=== PATIENT | male | born 1980 | race American Indian/Alaskan Native ===

== ENCOUNTER 2017-06-02 08:45 | Emergency (ER) | payer SELFPAY ==
[2017-06-02 08:52] VITALS: BP 139/95
--- NOTE | 2017-06-02 09:30 | Emergency Department Report ---
ED Male HPI - General Chief complaint: Urogenital-Male Stated complaint: STD CHECK Time Seen by Provider: 06/02/17 09:11 Source: patient Mode of arrival: Ambulatory Limitations: No Limitations - History of Present Illness Initial comments: This is a 36-year-old male nontoxic, well nourished in appearance, no acute signs of distress presents to the ED with c/o of possible STD exposure. Patient stated he had unprotected sex last week and his partner was diagnosed with Trichomonas couple days ago. Patient denies any penile discharge, urinary frequency, dysuria or hematuria. Patient denies any penile ulcers or lesions. Patient denies any testicular swelling, fever, chills, nausea, vomiting, chest pain or shortness of breath. Patient denies any allergies or significant past medical history. Radiation: none Severity scale (0 -10): 0 Improves with: none Worsens with: none denies other symptoms. denies: discharge, swelling, mass, rash, urinary retention, blood in urine, dysuria, fever, nausea/vomiting, incontinence - Related Data Allergies Allergy/AdvReac Type Severity Reaction Status Date / Time No Known Allergies Allergy Unverified 06/02/17 08:49 ED Review of Systems ROS: Stated complaint: STD CHECK Other details as noted in HPI Constitutional: denies: chills, fever Eyes: denies: eye pain, eye discharge, vision change ENT: denies: ear pain, throat pain Respiratory: denies: cough, shortness of breath, wheezing Cardiovascular: denies: chest pain, palpitations Endocrine: no symptoms reported Gastrointestinal: denies: abdominal pain, nausea, diarrhea Genitourinary: denies: urgency, dysuria Musculoskeletal: denies: back pain, joint swelling, arthralgia Skin: denies: rash, lesions Neurological: denies: headache, weakness, paresthesias Psychiatric: denies: anxiety, depression Hematological/Lymphatic: denies: easy bleeding, easy bruising ED Past Medical Hx - Past Medical History Previous Medical History?: No - Surgical History Past Surgical History?: No - Social History Smoking Status: Current Every Day Smoker Substance Use Type: Alcohol ED Physical Exam - General Limitations: No Limitations General appearance: alert, in no apparent distress - Head Head exam: Present: atraumatic, normocephalic - Eye Eye exam: Present: normal appearance - ENT ENT exam: Present: mucous membranes moist - Neck Neck exam: Present: normal inspection - Respiratory Respiratory exam: Present: normal lung sounds bilaterally. Absent: respiratory distress - Cardiovascular Cardiovascular Exam: Present: regular rate, normal rhythm. Absent: systolic murmur, diastolic murmur, rubs, gallop - GI/Abdominal GI/Abdominal exam: Present: soft, normal bowel sounds - Rectal Rectal exam: Present: deferred - Extremities Exam Extremities exam: Present: normal inspection - Back Exam Back exam: Present: normal inspection - Neurological Exam Neurological exam: Present: alert, oriented X3 - Psychiatric Psychiatric exam: Present: normal affect, normal mood - Skin Skin exam: Present: warm, dry, intact, normal color. Absent: rash ED Course Vital Signs 06/02/17 08:49 Temperature 97.8 F Pulse Rate 104 H Respiratory 20 Rate Blood Pressure 139/95 O2 Sat by Pulse 97 Oximetry - Reevaluation(s) Reevaluation #1: 06/02/17 09:28 Patient is speaking in full sentences with no signs of distress noted. ED Medical Decision Making - Medical Decision Making this is a 36-year-old male presents with possible STD exposure. Patient is stable and was examined by me. UA obtained and gonorrhea chlamydia pending. Patient was notified to return in 2 days for results of GC. He wants to be treated empirically so patient received Rocephin and azithromycin. Patient was also instructed to Follow-up with a primary care doctor in 3-5 days or if symptoms worsen and continue return to emergency room as soon as possible. At time of discharge, the patient does not seem toxic or ill in appearance. No acute signs of distress noted. Patient agrees to discharge treatment plan of care. No further questions noted by the patient. Critical care attestation.: If time is entered above; I have spent that time in minutes in the direct care of this critically ill patient, excluding procedure time. ED Disposition Clinical Impression: Possible exposure to STD Disposition: DC-01 TO HOME OR SELFCARE Is pt being admited?: No Does the pt Need Aspirin: No Condition: Stable Instructions: Safe Sex (ED) Additional Instructions: Follow-up with a primary care doctor in 3-5 days or if symptoms worsen and continue return to emergency room as soon as possible. Return in 3 days to obtain results of gonorrhea and chlamydia Referrals: JOE UGALDE MD [Primary Care Provider] - 3-5 Days LOKESH BOUCHER MD [Staff Physician] - 3-5 Days [facility] [Outside] - 3-5 Days Forms: Work/School Release Form(ED)
[2017-06-02] MEDS ORDERED: XYLOCAINE 1% MPF 5 mL INFILTRATI ONE (09:43)
[2017-06-02] MEDS ORDERED: ROCEPHIN IM ONE (09:43)
[2017-06-02] MEDS ORDERED: ZITHROMAX PO ONE (09:43)
[2017-06-02 09:52] LABS: Bilirubin,Urine NEG (Negative); Blood,Urine NEG (Negative); Color,Urine Yellow (Yellow); Protein,Urine <15 mg/dL mg/dL (Negative); Urobilinogen,Urine < 2.0 mg/dL (<2.0)
== END 2017-06-02 10:51 | disposition home or self-care (01) ==
LOC: ED 08:45
DX: Z20.2 Contact with and (suspected) exposure to infections with a predominantly sexual mode of transmission (principal); F17.200 Nicotine dependence, unspecified, uncomplicated
CPT/HCPCS: 81001; 87591; 96372; 99283; J0696

== ENCOUNTER 2017-12-23 13:50 | Emergency (ER) | payer SELFPAY ==
[2017-12-23] MEDS ORDERED: NORCO 5/325 PO ONE (17:00)
[2017-12-23] MEDS ORDERED: BOOSTRIX IM ONE (17:00)
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
[2017-12-23 19:26] VITALS: BP 124/86
== END 2017-12-23 19:26 | disposition home or self-care (01) ==
LOC: ED 13:50
DX: S02.2XXA Fracture of nasal bones, initial encounter for closed fracture (principal); S02.5XXA Fracture of tooth (traumatic), initial encounter for closed fracture; F17.200 Nicotine dependence, unspecified, uncomplicated; Y35.891A Legal intervention involving other specified means, law enforcement official injured, initial encounter; Y93.89 Activity, other specified; Y92.89 Other specified places as the place of occurrence of the external cause; Y99.8 Other external cause status
CPT/HCPCS: 70450; 70486; 90471; 90715; 99283

== ENCOUNTER 2018-10-05 21:24 | Emergency (ER) | payer OTHER ==
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
[2018-10-05] MEDS ORDERED: IBUPROFEN PO ONE (21:38)
[2018-10-05 21:52] VITALS: BP 105/76
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
[2018-10-06] MEDS ORDERED: IBUPROFEN ONE (00:11)
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
== END 2018-10-06 01:45 | disposition home or self-care (01) ==
LOC: ED 21:24
DX: S16.1XXA Strain of muscle, fascia and tendon at neck level, initial encounter (principal); S09.90XA Unspecified injury of head, initial encounter; M54.9 Dorsalgia, unspecified; F17.200 Nicotine dependence, unspecified, uncomplicated; V49.59XA Passenger injured in collision with other motor vehicles in traffic accident, initial encounter; Y93.89 Activity, other specified; Y92.89 Other specified places as the place of occurrence of the external cause; Y99.8 Other external cause status
CPT/HCPCS: 70450; 72125

== ENCOUNTER 2019-10-27 09:10 | Emergency (ER) | payer SELFPAY ==
[2019-10-27 09:26] VITALS: BP 141/101
--- NOTE | 2019-10-27 10:14 | Emergency Department Report ---
Chief Complaint: Back Pain/Injury Stated Complaint: BACK PAIN - HPI History of Present Illness: 39-year-old -Emirati male presents to the emergency room stating that he hurt his back this morning while moving a washing machine and dryer. Patient states that it is more on his left side. Patient reports is worse with twisting and movement. Patient denies any urinary or bowel incontinent. Patient is taken nothing for his pain. Patient denies any direct trauma to his back. Patient denies any past medical history takes no medications on a daily basis and has no known drug allergies. - Exam Vital Signs: Vital Signs 10/27/19 09:24 Temperature 98.3 F Pulse Rate 95 H Respiratory 20 Rate Blood Pressure 141/101 O2 Sat by Pulse 99 Oximetry Physical Exam: Alert and oriented x3 no acute distress Back full range of motion no vertebral tenderness left side muscle tenderness Ambulatory without difficulties. MSE screening note: Focused history and physical exam performed. Due to findings the following was ordered: 39-year-old -Emirati male presents to the emergency room stating that he hurt his back this morning while moving a washing machine and dryer. Patient states that it is more on his left side. Patient reports is worse with twisting and movement. Patient denies any urinary or bowel incontinent. Patient is taken nothing for his pain. Patient denies any direct trauma to his back. Patient denies any past medical history takes no medications on a daily basis and has no known drug allergies. You can take xciy-qcz-umzpsry ibuprofen and increase your water intake and follow-up with your primary care provider. ED Disposition for [facility] [place] Disposition: MED SCREENING EXAM-LEFT Is pt being admited?: No Does the pt Need Aspirin: No Condition: Stable Instructions: Low Back Strain (ED) Additional Instructions: You can take fywv-pfd-afywiwr ibuprofen and increase your water intake and follow-up with your primary care provider. Referrals: PRIMARY CARE, [Primary Care Provider] - 3-5 Days [facility] [Outside] - 3-5 Days [facility] [Provider Group] - 3-5 Days
== END 2019-10-27 10:44 | disposition left against medical advice (07) ==
LOC: ED 09:10
DX: M54.9 Dorsalgia, unspecified (principal); Z53.21 Procedure and treatment not carried out due to patient leaving prior to being seen by health care provider

== ENCOUNTER 2020-10-16 08:49 | Inpatient (IN) | payer OTHER, SELFPAY ==
[2020-10-16] MEDS ORDERED: MORPHINE 2 MG/1 ML INJ IV ONE (09:07)
[2020-10-16] MEDS ORDERED: ONDANSETRON 4 MG/2 ML INJ IV ONE (09:07)
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
[2020-10-16] MEDS ORDERED: HALOPERIDOL LACTATE 5 MG/1 ML INJ IM ONE (09:47)
[2020-10-16 10:05] LABS: Hematocrit 47.6 % (35.5-45.6); Hemoglobin 15.9 gm/dl (11.8-15.2); Mean Corpuscular HGB Conc 33 % (32-34); Mean Corpuscular Volume 93 fl (84-94); Platelet Count 301 K/mm3 (140-440); Red Blood Count 5.12 M/mm3 (3.65-5.03); Red Cell Distribution Width 16.3 % (13.2-15.2)
[2020-10-16 10:24] LABS: Alanine Aminotransferase 21 units/L (7-56); Albumin 4.4 g/dL (3.9-5); BUN/Creatinine Ratio 10; Blood Urea Nitrogen 12 mg/dL (9-20); Calcium 9.6 mg/dL (8.4-10.2); Hemolysis Index 37
[2020-10-16 10:49] LABS: Bilirubin,Direct < 0.2 mg/dL (0-0.2)
[2020-10-16] MEDS ORDERED: PIPERACIL/TAZOBACTA 4.5/NS 100 4.5 GM/100 ML VIAL IV ONE (10:54)
--- NOTE | 2020-10-16 10:59 | XRay Report ---
XR abd series w cxr 1V INDICATION / CLINICAL INFORMATION: abd pain. COMPARISON: None available. FINDINGS: SUPPORT DEVICES: None. HEART / MEDIASTINUM: No significant abnormality. LUNGS / PLEURA: Lungs are clear. Costophrenic sulci are sharp. No pneumothorax. ABDOMEN: Free air noted underlying the right and left hemidiaphragms. No other abnormal findings with in the abdomen. ADDITIONAL FINDINGS: No significant additional findings. IMPRESSION: Pneumoperitoneum. CRITICAL RESULT Time of Communication (RAILROAD AUDITOR/CDT): 9:54 AM Licensed Practitioner Receiving Report: Dr. Newsome Read-Back Performed: Yes. Signer Name: Burt Shah MD Signed: 10/16/2020 10:54 AM Workstation Name: [email or web address]
[2020-10-16] MEDS ORDERED: SODIUM CHLORIDE 0.9% 1000 ML 1,000 ML IV ONE ×2 (11:21→14:51)
--- NOTE | 2020-10-16 11:33 | Cat Scan Report ---
CT ABDOMEN AND PELVIS WITH IV CONTRAST INDICATION: abd pain omni 300 100ml . Known pneumoperitoneum COMPARISON: None available. TECHNIQUE: Axial CT images were obtained through the abdomen and pelvis after 100 mL IV contrast. All CT scans a t this location are performed using CT dose reduction for ALARA by means of automated exposure contro l. FINDINGS -- Abdomen and pelvis: Severe and extensive free intraperitoneal air and fluid identified throughout the abdomen especially the upper abdomen. There is patchy bibasilar consolidation within both lower lung s, right worse than left consistent with mild pneumonitis/atelectasis. There is free gas adjacent to the distal thoracic esophagus just above the level of the esophageal hiatus. There are multiple dilated loops of small bowel within the left mid and lower abdomen. The duodenum a ppears dilated. A transition is difficult to discern but appears to be near the midline mid abdomen. The liver, spleen, pancreas adrenal glands and kidneys are grossly unremarkable within the limits of the exam given significant amount of respiratory motion artifact. The gallbladder demonstrates modera te pericholecystic fluid however this could be secondary to significant free intra-abdominal fluid. T he proximal duodenum is fluid distended. Multiple cysts are present within the kidneys. Abdominal aor ta is normal in size. The appendix is poorly identified on this exam. The urinary bladder is fluid di stended. Moderate free pelvic fluid is noted. A+ free gas is present within the lower pelvis. Review of bone windows demonstrates mild thoracolumbar degenerative change. IMPRESSION: 1. Severe and extensive pneumoperitoneum with free fluid throughout much of the abdomen but especiall y the right upper abdomen. Overall the findings are most consistent with a perforated viscus within t he upper GI tract however the exact location is somewhat uncertain especially given the degree of mot ion artifact. Primary considerations of areas of possible perforation include the proximal duodenum ( perforated ulcer) versus the distal thoracic esophagus. Upper endoscopy may be useful for further nereyda luation. 2. Multiple dilated loops of small bowel primarily involving the left mid abdomen with gradual transi tion somewhere near the mid abdomen. It is unclear if this dilatation is primarily secondary to acute peritonitis from perforated viscus versus newly developing small bowel obstruction. Signer Name: Brenton Chaparro MD Signed: 10/16/2020 11:29 AM Workstation Name: [employer]
[2020-10-16] MEDS ORDERED: methylPREDNISolone Sod Succinate 125 MG/2 ML INJ ONE (13:21)
[2020-10-16] MEDS ORDERED: FAMOTIDINE 20 MG/2 ML INJ IV ONE (13:21)
[2020-10-16] MEDS ORDERED: diphenhydrAMINE 50 MG/ML VIAL ONE (13:22)
[2020-10-16] MEDS ORDERED: EPINEPHrine/PF 1 MG/1 ML INJ ONE (13:29)
--- NOTE | 2020-10-16 13:58 | Fluoroscopy Report ---
BARIUM SWALLOW HISTORY: Severe abdominal pain, free air on recent CT, evaluate for esophageal perforation FINDINGS: Multiple attempts were made to get the patient to ingest Gastrografin to evaluate for an es ophageal leak/perforation. The patient was unable to ingest the oral contrast agent secondary to ramona re pain. These findings were discussed with Dr. Newsome in the emergency department. IMPRESSION: Unsuccessful exam due to patient condition. See above. Fluoroscopy time: 0.3 minutes. Fluoroscopic images:1 Signer Name: Williams Martinez Jr, MD Signed: 10/16/2020 1:54 PM Workstation Name: [id number]
[2020-10-16 15:12] LABS: Total Cells Counted 100
[2020-10-16 15:13] LABS: Platelet Estimate Consistent w Auto; RBC Morphology Normal
--- NOTE | 2020-10-16 17:24 | Consultation ---
History of Present Illness Consult date: 10/16/20 Reason for consult: abdominal pain - History of present illness History of present illness: 40 yo male presents to the ED with 3 hour h/o diffuse abdominal pain, nausea and vomiting after eating yogurt and milk. Denies hematemesis, melena, significant alcohol intake or h/o PUD. No OTC NSAID use. Medications and Allergies Allergies Allergy/AdvReac Type Severity Reaction Status Date / Time No Known Allergies Allergy Verified 10/27/19 09:22 Home Medications Medication Instructions Recorded Confirmed Last Taken Type HYDROcodone/APAP 5-325 [Stow 1 each PO Q6HR PRN #12 tablet 12/23/17 Unknown Rx 5/325] Sulfamethoxazole/Trimethoprim 1 each PO BID #14 tablet 12/23/17 Unknown Rx [Bactrim DS TAB] Ketorolac [Toradol] 10 mg PO Q6H PRN #14 tablet 01/02/18 Unknown Rx methOCARBAMOL [Robaxin TAB] 500 mg PO Q6H PRN #20 tablet 01/02/18 Unknown Rx Baclofen [Lioresal] 10 mg PO TID #15 tab 10/06/18 Unknown Rx Ibuprofen [Motrin 600 MG tab] 600 mg PO Q8H PRN #30 tablet 10/06/18 Unknown Rx Active Meds: Active Medications Sodium Chloride (Nacl 0.9% 1000 Ml) 1,000 mls @ 125 mls/hr IV ONCE ONE Stop: 10/16/20 22:50 Review of Systems All systems: negative (none) Exam Vital Signs Pulse Ox 64 L 10/16/20 09:01 - General physical appearance Positive: well developed, well nourished, no distress - Eyes Positive: PERRL, normal occular movement - ENT Positive: normal pinna, normal nares, normal mucosa, no hearing loss, no congestion - Neck Positive: no masses, no bruits, trachea midline, no venous distension - Respiratory Positive: normal expansion, normal respiratory effort, clear to auscultation - Cardiovascular Rhythm: regular Heart Sounds: Present: S1 & S2. Absent: rub, click - Extremities Extremities: no ischemia, pulses symmetrical, No edema - Breasts Breasts: normal, no mass, no skin changes - Abdomen Abdomen: Present: other (Flat with diffuse tenderness, rebound and guarding. BS hypoactive. No hernias.) Hernia: none - Genitourinary Male Genitourinary: normal Female Genitourinary: normal - Integumentary no rash, no growths, no abnormal pigmentation - Neurologic Neurologic: alert and oriented to time, place and person, motor strength and sensation are grossly intact - Musculoskeletal normal gait, normal posture - Psychiatric Psychiatric: appropriate mood/affect, intact judgment & insight Results - Labs 10/16/20 09:44 10/16/20 09:44 Abnormal lab results 10/16/20 10/16/20 Range/Units 09:44 09:44 RBC 5.12 H (3.65-5.03) M/mm3 Hgb 15.9 H (11.8-15.2) gm/dl Hct 47.6 H (35.5-45.6) % RDW 16.3 H (13.2-15.2) % Seg Neuts % (Manual) 75.0 H (40.0-70.0) % Lymphocytes % (Manual) 9.0 L (13.4-35.0) % Lymphocytes # (Manual) 0.6 L (1.2-5.4) K/mm3 Glucose 133 H (75-100) mg/dL Lipase 99 H (13-60) units/L Diabetes panel 10/16/20 Range/Units 09:44 Sodium 137 (137-145) mmol/L Potassium 3.9 (3.6-5.0) mmol/L Chloride 98.6 (98-107) mmol/L Carbon Dioxide 23 (22-30) mmol/L BUN 12 (9-20) mg/dL Creatinine 1.2 (0.8-1.3) mg/dL Glucose 133 H (75-100) mg/dL Calcium 9.6 (8.4-10.2) mg/dL AST 40 (5-40) units/L ALT 21 (7-56) units/L Alkaline Phosphatase 56 (35-129) units/L Total Protein 6.8 (6.3-8.2) g/dL Albumin 4.4 (3.9-5) g/dL Calcium panel 10/16/20 Range/Units 09:44 Calcium 9.6 (8.4-10.2) mg/dL Albumin 4.4 (3.9-5) g/dL Pituitary panel 10/16/20 Range/Units 09:44 Sodium 137 (137-145) mmol/L Potassium 3.9 (3.6-5.0) mmol/L Chloride 98.6 (98-107) mmol/L Carbon Dioxide 23 (22-30) mmol/L BUN 12 (9-20) mg/dL Creatinine 1.2 (0.8-1.3) mg/dL Glucose 133 H (75-100) mg/dL Calcium 9.6 (8.4-10.2) mg/dL Adrenal panel 10/16/20 Range/Units 09:44 Sodium 137 (137-145) mmol/L Potassium 3.9 (3.6-5.0) mmol/L Chloride 98.6 (98-107) mmol/L Carbon Dioxide 23 (22-30) mmol/L BUN 12 (9-20) mg/dL Creatinine 1.2 (0.8-1.3) mg/dL Glucose 133 H (75-100) mg/dL Calcium 9.6 (8.4-10.2) mg/dL Total Bilirubin 0.60 (0.1-1.2) mg/dL AST 40 (5-40) units/L ALT 21 (7-56) units/L Alkaline Phosphatase 56 (35-129) units/L Total Protein 6.8 (6.3-8.2) g/dL Albumin 4.4 (3.9-5) g/dL - Imaging Chest x-ray: image reviewed Abdominal x-ray: image reviewed CT scan - abdomen: report reviewed CT scan - pelvis: report reviewed Assessment and Plan - Patient Problems (1) Perforated abdominal viscus Current Visit: Yes Status: Acute Plan to address problem: 1) IV Zosyn 2) IV Protonix 3) To OR for exploratory laparotomy and indicated surgery.
[2020-10-16] MEDS ORDERED: PANTOPRAZOLE 40 MG INJ IV ONE (17:40)
--- NOTE | 2020-10-16 17:44 | XRay Report ---
CHEST 1 VIEW 10/16/2020 4:18 PM INDICATION / CLINICAL INFORMATION: r/o esophageal perforation. COMPARISON: October 16 at 10:28 AM FINDINGS: SUPPORT DEVICES: None. HEART / MEDIASTINUM: No significant abnormality. LUNGS / PLEURA: There is increased opacity within the right lung base, likely representing compressiv e atelectasis No pneumothorax. ADDITIONAL FINDINGS: Redemonstrated subdiaphragmatic air. Contrast material is noted within the stoma ch extending into the duodenum. IMPRESSION: 1. Redemonstrated pneumoperitoneum. Increased opacity within the right lung base, likely representing compressive atelectasis. Signer Name: Ronald Romo DO Signed: 10/16/2020 5:40 PM Workstation Name: [id number]
[2020-10-16] MEDS ORDERED: LIDOCAINE MPF (2%) 20 MG/1 ML VIAL 5 ML ONE (18:08)
[2020-10-16] MEDS ORDERED: propofoL 200 MG/20 ML VIAL IV ONE (18:08)
[2020-10-16] MEDS ORDERED: ROCURONIUM 50 MG/5 ML INJ IV ONE (18:08)
[2020-10-16] MEDS ORDERED: ONDANSETRON 4 MG/2 ML INJ ONE (18:08)
[2020-10-16] MEDS ORDERED: HYDROmorphone 1 MG/1 ML INJ ONE (18:08)
[2020-10-16] MEDS ORDERED: SUCCINYLCHOLINE CHLORIDE 200 MG/10 ML INJ MDV ONE (18:11)
--- NOTE | 2020-10-16 18:15 | Anesthesia Day of Surgery ---
Anesthesia Day of Surgery - Day of Surgery Patient Examined: Yes Patient H&P Reviewed: Yes Patient is NPO: No (Had oral contrast)
--- NOTE | 2020-10-16 18:17 | Anesthesia Consultation ---
Anesthesia Consult and Med Hx Date of service: 10/16/20 - Airway Anesthetic Teeth Evaluation: Caps, Crowns ROM Head & Neck: Adequate Mental/Hyoid Distance: Adequate Mallampati Class: Class II Intubation Access Assessment: Probably Good - Pre-Operative Health Status ASA Pre-Surgery Classification: ASA2, Emergency Proposed Anesthetic Plan: General - Pre-Anesthesia Comment Pre-Anesthesia Comments: Pt not very cooperative and not answering questions. Information primarily from chart - Central Nervous System Hx Back Pain: Yes
[2020-10-16] MEDS ORDERED: LACTATED RINGERS 1,000 ML ONE ×2 (18:45→19:48)
[2020-10-16] MEDS ORDERED: PIPERACILLIN/TAZOBACTAM 3.375 3.375 GM/50 ML BAG IV ONE (19:00)
[2020-10-16] MEDS ORDERED: SODIUM CHLORIDE 0.9% IRR 1,500 ML BOTTLE IR ONE ×2 (19:00→19:18)
[2020-10-16] MEDS ORDERED: ONDANSETRON 4 MG/2 ML INJ IV PRN ×2 (19:06→21:17)
[2020-10-16] MEDS ORDERED: HYDROmorphone 1 MG/1 ML INJ IV PRN (19:06)
[2020-10-16] MEDS ORDERED: dexAMETHasone 20 MG/5 ML VIAL ONE (19:24)
[2020-10-16] MEDS ORDERED: KETOROLAC 30 MG/1 ML INJ ONE (19:39)
[2020-10-16] MEDS ORDERED: GLYCOPYRROLATE 0.4 MG/2 ML INJ ONE (19:48)
[2020-10-16] MEDS ORDERED: NEOSTIGMINE 10MG/10 ML INJ MDV ONE (19:48)
--- NOTE | 2020-10-16 19:50 | Procedure Note ---
Date of procedure: 10/16/20 Pre-op diagnosis: Perforated viscous with pneumoperitoneum Post-op diagnosis: same (secondary to perforated gastric ulcer) Procedure: 1) Oversewing of perforated 2) Omentoplasty Description of procedure: Pt was placed supine on the OR table. GETA was administered. Abdomen was prepped and draped. Peritoneal cavity was entered via a vertical midline incision. A large amount of bile colored fluid was present in the peritoneal cavity. This was collected for C&S and suctioned. The perforation was immediately identified in the anterior wall of the proximal gastric antrum. The perforation was approximately 8 mm in diameter. The perforation was closed with 2 sutures of 2-0 silk. An omentoplasty was then performed over the perforation by securing the omentum over the perforation using the previously placed sutures of 2-0 silk. Peritoneal cavity was irrigated with 2 liters of warm saline. Midline fascia was closed with a running, looped 0-PDS suture. SQ tissue was packed open with a dilute Betadine moistened Kerlix roll followed by dry 4 X 4's, ABD and Medipore tape. Pt tolerated the procedure well. Pt was extubated in the OR and was taken to PACU in stable condtion. Anesthesia: GETA Surgeon: JUSTYNA YORK Estimated blood loss: minimal Pathology: list (C&S of free intra-peritoneal fluid) Specimen disposition: to lab Condition: stable Disposition: PACU
[2020-10-16] MEDS ORDERED: PIPERACILLIN/TAZOBACTAM 3.375 3.375 GM/50 ML BAG IV SCH (20:00)
[2020-10-16] MEDS: HYDROmorphone 1 MG/1 ML INJ IV PRN ×2 (20:07→20:17)
[2020-10-16] MEDS ORDERED: ACETAMINOPHEN 325 MG TAB PO PRN (21:17)
[2020-10-16] MEDS ORDERED: METOCLOPRAMIDE 10 MG/2 ML INJ IV PRN (21:17)
[2020-10-16 21:50] LABS: Bilirubin,Urine NEG (Negative); Blood,Urine NEG (Negative); Color,Urine Yellow (Yellow); Mucus,Urine FEW /HPF; Protein,Urine <15 mg/dL mg/dL (Negative); RBC,Urine < 1.0 /HPF (0.0-6.0); Urobilinogen,Urine < 2.0 mg/dL (<2.0); WBC,Urine < 1.0 /HPF (0.0-6.0)
[2020-10-16 21:53] LABS: Amphetamine Screen,Urine Negative; Benzodiazepines Screen,Urine Negative; Cannabinoid Screen,Urine Negative; Methadone Screen,Urine Negative; Opiate Screen,Urine Negative
[2020-10-16] MEDS ORDERED: FAMOTIDINE 20 MG/2 ML INJ IV SCH (22:00)
[2020-10-16 22:07] LABS: Cocaine Screen,Urine Positive
[2020-10-17] MEDS ORDERED: PIPERACILLIN/TAZOBACTAM 3.375 3.375 GM/50 ML BAG IV SCH (03:00)
[2020-10-17] MEDS: D5W/0.9% NACL 1,000 ML IV SCH ×2 (06:42→22:40)
[2020-10-17] MEDS: MORPHINE 2 MG/1 ML INJ IV PRN ×2 (06:43→19:35)
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
[2020-10-17 07:14] LABS: Basophils % (Auto) 0.1 % (0.0-1.8); Hematocrit 46.2 % (35.5-45.6); Hemoglobin 15.6 gm/dl (11.8-15.2); Lymphocytes # (Auto) 0.6 K/mm3 (1.2-5.4); Lymphocytes % (Auto) 8.5 % (13.4-35.0); Mean Corpuscular HGB Conc 34 % (32-34); Mean Corpuscular Volume 93 fl (84-94); Monocytes # (Auto) 0.7 K/mm3 (0.0-0.8); Monocytes % (Auto) 9.3 % (0.0-7.3); Platelet Count 241 K/mm3 (140-440); Red Blood Count 4.99 M/mm3 (3.65-5.03)
--- NOTE | 2020-10-17 07:29 | Post Anesthesia Evaluation ---
- Post Anesthesia Evaluation Patient Participated: Yes Airway Patent: Yes Stable Respiratory Function: Yes Nausea/Vomiting: No Temp > 96.8F: Yes Pain Manageable: Yes Adequeate Hydration: Yes Anesthesia Complications: No Block Receding Appropriately: Not Applicable Patient on Ventilator: No
[2020-10-17 07:35] LABS: BUN/Creatinine Ratio 12; Blood Urea Nitrogen 11 mg/dL (9-20); Calcium 8.3 mg/dL (8.4-10.2); Hemolysis Index 7
--- NOTE | 2020-10-17 08:26 | Progress Note ---
Assessment and Plan Assessment and plan: (1) Perforated abdominal viscus Current Visit: Yes Status: Acute Plan to address problem: Patient was taken for emergent abdominal surgery for repair of perforated viscus Perforated viscus may be in the duodenum or the lower esophagus Dr. Briceño consulted N.p.o. for now IVF Zosyn for now (2) Dehydration Current Visit: Yes Status: Acute Plan to address problem: IV fluids for now (3) Peritonitis Current Visit: Yes Status: Acute Plan to address problem: Secondary to perforation IV Zosyn for now (4) DVT prophylaxis Current Visit: Yes Status: Acute Plan to address problem: On SCDs and GI prophylaxis 10/17 -Status post patch worsening of the perforated gastric ulcer and omentoplasty by Dr. Briceño -Continue IV antibiotics for now -We will follow Dr. Briceño's recommendation -I ordered IV PPI -Cocaine use; counseled about cessation of using cocaine History Interval history: Patient was seen and evaluated this morning Patient said he has abdominal pain Hospitalist Physical - Physical exam Narrative exam: Not in cardiopulmonary distress. The patient appeared well nourished and normally developed. Vital signs as documented. Head exam is unremarkable. No scleral icterus . Neck is without jugular venous distension, thyromegaly, or carotid bruits. Lungs are clear to auscultation. Cardiac exam reveals regular rate and Rhythm. Abdominal exam reveals moderate tenderness. Extremities are nonedematous and both femoral and pedal pulses are normal. 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 No focal weakness. - Constitutional Vitals: Temp Pulse Resp BP Pulse Ox 98.7 F 90 18 105/70 95 10/17/20 07:54 10/17/20 07:54 10/17/20 07:54 10/17/20 07:54 10/17/20 07:54 General appearance: Present: no acute distress, well-nourished Results - Labs CBC & Chem 7: 10/17/20 06:41 10/17/20 06:41 Labs: Laboratory Last Values WBC 7.0 K/mm3 (4.5-11.0) 10/17/20 06:41 RBC 4.99 M/mm3 (3.65-5.03) 10/17/20 06:41 Hgb 15.6 gm/dl (11.8-15.2) H 10/17/20 06:41 Hct 46.2 % (35.5-45.6) H 10/17/20 06:41 MCV 93 fl (84-94) 10/17/20 06:41 MCH 31 pg (28-32) 10/17/20 06:41 MCHC 34 % (32-34) 10/17/20 06:41 RDW 16.0 % (13.2-15.2) H 10/17/20 06:41 Plt Count 241 K/mm3 (140-440) 10/17/20 06:41 Lymph % (Auto) 8.5 % (13.4-35.0) L 10/17/20 06:41 [place] % (Auto) 9.3 % (0.0-7.3) H 10/17/20 06:41 Eos % (Auto) 0.0 % (0.0-4.3) 10/17/20 06:41 Baso % (Auto) 0.1 % (0.0-1.8) 10/17/20 06:41 Lymph # (Auto) 0.6 K/mm3 (1.2-5.4) L 10/17/20 06:41 [place] # (Auto) 0.7 K/mm3 (0.0-0.8) 10/17/20 06:41 Eos # (Auto) 0.0 K/mm3 (0.0-0.4) 10/17/20 06:41 Baso # (Auto) 0.0 K/mm3 (0.0-0.1) 10/17/20 06:41 Add Manual Diff Complete 10/16/20 09:44 Total Counted 100 10/16/20 09:44 Seg Neutrophils % 82.1 % (40.0-70.0) H 10/17/20 06:41 Seg Neuts % (Manual) 75.0 % (40.0-70.0) H 10/16/20 09:44 Band Neutrophils % 14.0 % 10/16/20 09:44 Lymphocytes % (Manual) 9.0 % (13.4-35.0) L 10/16/20 09:44 Monocytes % (Manual) 2.0 % (0.0-7.3) 10/16/20 09:44 Nucleated RBC % Not Reportable 10/16/20 09:44 Seg Neutrophils # 5.7 K/mm3 (1.8-7.7) 10/17/20 06:41 Seg Neutrophils # Man 5.3 K/mm3 (1.8-7.7) 10/16/20 09:44 Band Neutrophils # 1.0 K/mm3 10/16/20 09:44 Lymphocytes # (Manual) 0.6 K/mm3 (1.2-5.4) L 10/16/20 09:44 Abs React Lymphs (Man) 0.0 K/mm3 10/16/20 09:44 Monocytes # (Manual) 0.1 K/mm3 (0.0-0.8) 10/16/20 09:44 Eosinophils # (Manual) 0.0 K/mm3 (0.0-0.4) 10/16/20 09:44 Basophils # (Manual) 0.0 K/mm3 (0.0-0.1) 10/16/20 09:44 Metamyelocytes # 0.0 K/mm3 10/16/20 09:44 Myelocytes # 0.0 K/mm3 10/16/20 09:44 Promyelocytes # 0.0 K/mm3 10/16/20 09:44 Blast Cells # 0.0 K/mm3 10/16/20 09:44 WBC Morphology Not Reportable 10/16/20 09:44 Hypersegmented Neuts Not Reportable 10/16/20 09:44 Hyposegmented Neuts Not Reportable 10/16/20 09:44 Hypogranular Neuts Not Reportable 10/16/20 09:44 Smudge Cells Not Reportable 10/16/20 09:44 Toxic Granulation Not Reportable 10/16/20 09:44 Toxic Vacuolation Not Reportable 10/16/20 09:44 Dohle Bodies Not Reportable 10/16/20 09:44 Pelger-Huet Anomaly Not Reportable 10/16/20 09:44 Flori Rods Not Reportable 10/16/20 09:44 Platelet Estimate Consistent w auto 10/16/20 09:44 Clumped Platelets Not Reportable 10/16/20 09:44 Plt Clumps, EDTA Not Reportable 10/16/20 09:44 Large Platelets Not Reportable 10/16/20 09:44 Giant Platelets Not Reportable 10/16/20 09:44 Platelet Satelliting Not Reportable 10/16/20 09:44 Plt Morphology Comment Not Reportable 10/16/20 09:44 RBC Morphology Normal 10/16/20 09:44 Dimorphic RBCs Not Reportable 10/16/20 09:44 Polychromasia Not Reportable 10/16/20 09:44 Hypochromasia Not Reportable 10/16/20 09:44 Poikilocytosis Not Reportable 10/16/20 09:44 Anisocytosis Not Reportable 10/16/20 09:44 Microcytosis Not Reportable 10/16/20 09:44 Macrocytosis Not Reportable 10/16/20 09:44 Spherocytes Not Reportable 10/16/20 09:44 Pappenheimer Bodies Not Reportable 10/16/20 09:44 Sickle Cells Not Reportable 10/16/20 09:44 Target Cells Not Reportable 10/16/20 09:44 Tear Drop Cells Not Reportable 10/16/20 09:44 Ovalocytes Not Reportable 10/16/20 09:44 Helmet Cells Not Reportable 10/16/20 09:44 [place] Bodies Not Reportable 10/16/20 09:44 [place] Rings Not Reportable 10/16/20 09:44 [place] Cells Not Reportable 10/16/20 09:44 Bite Cells Not Reportable 10/16/20 09:44 Crenated Cell Not Reportable 10/16/20 09:44 Elliptocytes Not Reportable 10/16/20 09:44 Acanthocytes (Spur) Not Reportable 10/16/20 09:44 Rouleaux Not Reportable 10/16/20 09:44 Hemoglobin C Crystals Not Reportable 10/16/20 09:44 Schistocytes Not Reportable 10/16/20 09:44 Malaria parasites Not Reportable 10/16/20 09:44 Kalia Bodies Not Reportable 10/16/20 09:44 Hem Pathologist Commnt No 10/16/20 09:44 Sodium 136 mmol/L (137-145) L 10/17/20 06:41 Potassium 4.5 mmol/L (3.6-5.0) 10/17/20 06:41 Chloride 102.8 mmol/L (98-107) 10/17/20 06:41 Carbon Dioxide 22 mmol/L (22-30) 10/17/20 06:41 Anion Gap 16 mmol/L 10/17/20 06:41 BUN 11 mg/dL (9-20) 10/17/20 06:41 Creatinine 0.9 mg/dL (0.8-1.3) 10/17/20 06:41 Estimated GFR > 60 ml/min 10/17/20 06:41 BUN/Creatinine Ratio 12 % 10/17/20 06:41 Glucose 117 mg/dL (75-100) H 10/17/20 06:41 Calcium 8.3 mg/dL (8.4-10.2) L 10/17/20 06:41 Total Bilirubin 0.60 mg/dL (0.1-1.2) 10/16/20 09:44 Direct Bilirubin < 0.2 mg/dL (0-0.2) 10/16/20 09:44 Indirect Bilirubin 0.4 mg/dL 10/16/20 09:44 AST 40 units/L (5-40) 10/16/20 09:44 ALT 21 units/L (7-56) 10/16/20 09:44 Alkaline Phosphatase 56 units/L (35-129) 10/16/20 09:44 Total Protein 6.8 g/dL (6.3-8.2) 10/16/20 09:44 Albumin 4.4 g/dL (3.9-5) 10/16/20 09:44 Albumin/Globulin Ratio 1.8 % 10/16/20 09:44 Lipase 99 units/L (13-60) H 10/16/20 09:44 Urine Color Yellow (Yellow) 10/16/20 Unknown Urine Turbidity Clear (Clear) 10/16/20 Unknown Urine pH 5.0 (5.0-7.0) 10/16/20 Unknown Ur Specific [place] 1.035 (1.003-1.030) H 10/16/20 Unknown Urine Protein <15 mg/dl mg/dL (Negative) 10/16/20 Unknown Urine Glucose (UA) Neg mg/dL (Negative) 10/16/20 Unknown Urine Ketones 80 mg/dL (Negative) 10/16/20 Unknown Urine Blood Neg (Negative) 10/16/20 Unknown Urine Nitrite Neg (Negative) 10/16/20 Unknown Urine Bilirubin Neg (Negative) 10/16/20 Unknown Urine Urobilinogen < 2.0 mg/dL (<2.0) 10/16/20 Unknown Ur Leukocyte Esterase Neg (Negative) 10/16/20 Unknown Urine WBC (Auto) < 1.0 /HPF (0.0-6.0) 10/16/20 Unknown Urine RBC (Auto) < 1.0 /HPF (0.0-6.0) 10/16/20 Unknown U Epithel Cells (Auto) < 1.0 /HPF (0-13.0) 10/16/20 Unknown Uric Acid Crystals Few 10/16/20 Unknown Urine Mucus Few /HPF 10/16/20 Unknown Urine Opiates Screen Negative 10/16/20 Unknown Urine Methadone Screen Negative 10/16/20 Unknown Ur Barbiturates Screen Negative 10/16/20 Unknown Ur Phencyclidine Scrn Negative 10/16/20 Unknown Ur Amphetamines Screen Negative 10/16/20 Unknown U Benzodiazepines Scrn Negative 10/16/20 Unknown Urine Cocaine Screen Positive 10/16/20 Unknown U Marijuana (THC) Screen Negative 10/16/20 Unknown Drugs of Abuse Note Disclamer 10/16/20 Unknown Carrero/IV: Voiding Method Indwelling Catheter Active Medications - Current Medications Current Medications: Generic Name Dose Route Start Last Admin Trade Name Freq PRN Reason Stop Dose Admin Acetaminophen 650 mg 10/16/20 21:17 Acetaminophen 325 Mg Tab PO Q4H PRN Pain MILD(1-3)/Fever >100.5/CASTELLANO Hydromorphone HCl 0.5 mg 10/16/20 21:17 Hydromorphone 1 Mg/1 Ml Inj IV Q3H PRN Pain , Severe (7-10) Piperacillin Sod/Tazobactam Sod 3.375 gm in 50 mls @ 100 mls/hr 10/17/20 03:00 Zosyn/Ns 3.375gm/50ml IV Q8H MASSIEL Protocol Dextrose/Sodium Chloride 1,000 mls @ 75 mls/hr 10/16/20 22:00 10/17/20 06:42 D5ns IV 75 mls/hr DIRECT MASSIEL Administration Metoclopramide HCl 10 mg 10/16/20 21:17 Metoclopramide 10 Mg/2 Ml Inj IV Q6H PRN Nausea And Vomiting Morphine Sulfate 2 mg 10/16/20 21:17 10/17/20 06:43 Morphine 2 Mg/1 Ml Inj IV 2 mg Q4H PRN Administration Pain, Moderate (4-6) Ondansetron HCl 4 mg 10/16/20 21:17 Ondansetron 4 Mg/2 Ml Inj IV Q3H PRN Nausea And Vomiting Pantoprazole Sodium 40 mg 10/16/20 22:00 Pantoprazole 40 Mg Inj IV BID MASSIEL Sodium Chloride 10 ml 10/16/20 22:00 Sodium Chloride 0.9% 10 Ml Flush Syringe IV BID MASSIEL Sodium Chloride 10 ml 10/16/20 21:17 Sodium Chloride 0.9% 10 Ml Flush Syringe IV PRN PRN LINE FLUSH
[2020-10-17] MEDS: HYDROmorphone 1 MG/1 ML INJ IV PRN ×2 (11:15→22:35)
[2020-10-17] MEDS: PANTOPRAZOLE 40 MG INJ IV SCH ×3 (13:49→22:34)
[2020-10-17] MEDS: PIPERACIL/TAZOBACTA 4.5/NS 100 4.5 GM/100 ML VIAL IV SCH ×2 (13:56→22:34)
--- NOTE | 2020-10-17 14:37 | Progress Note ---
Assessment and Plan - Patient Problems (1) Perforated abdominal viscus Current Visit: Yes Status: Acute Plan to address problem: 1) DC genao 2) Ambulate in halls 3) Continue NG 4) CBC and BMP in the am 5) Continue Zosyn Subjective Date of service: 10/17/20 Patient Reports: Positive: no new complaints, feels better, still having pain (Has not ambulated yet.) Objective Vital Signs - 12hr 10/17/20 10/17/20 10/17/20 05:15 06:43 07:54 Temperature 97.9 F 98.7 F Pulse Rate 87 90 Respiratory 18 18 18 Rate Blood Pressure 114/87 105/70 O2 Sat by Pulse 98 95 Oximetry 10/17/20 11:08 Temperature 98.7 F Pulse Rate 101 H Respiratory 18 Rate Blood Pressure 110/72 O2 Sat by Pulse 98 Oximetry - Abdomen soft, bowel sounds hypoactive (ND, appropriately TTP) - Labs 10/17/20 06:41 10/17/20 06:41 Diabetes panel 10/17/20 10/17/20 Range/Units 06:41 06:41 Sodium 136 L (137-145) mmol/L Potassium 4.5 (3.6-5.0) mmol/L Chloride 102.8 (98-107) mmol/L Carbon Dioxide 22 (22-30) mmol/L BUN 11 (9-20) mg/dL Creatinine 0.9 (0.8-1.3) mg/dL Glucose 117 H (75-100) mg/dL Hemoglobin A1c 5.8 (4-6) % Calcium 8.3 L (8.4-10.2) mg/dL Calcium panel 10/17/20 Range/Units 06:41 Calcium 8.3 L (8.4-10.2) mg/dL Pituitary panel 10/17/20 Range/Units 06:41 Sodium 136 L (137-145) mmol/L Potassium 4.5 (3.6-5.0) mmol/L Chloride 102.8 (98-107) mmol/L Carbon Dioxide 22 (22-30) mmol/L BUN 11 (9-20) mg/dL Creatinine 0.9 (0.8-1.3) mg/dL Glucose 117 H (75-100) mg/dL Calcium 8.3 L (8.4-10.2) mg/dL Adrenal panel 10/17/20 Range/Units 06:41 Sodium 136 L (137-145) mmol/L Potassium 4.5 (3.6-5.0) mmol/L Chloride 102.8 (98-107) mmol/L Carbon Dioxide 22 (22-30) mmol/L BUN 11 (9-20) mg/dL Creatinine 0.9 (0.8-1.3) mg/dL Glucose 117 H (75-100) mg/dL Calcium 8.3 L (8.4-10.2) mg/dL - Imaging Additional Studies: UDS was + for cocaine.
[2020-10-18] MEDS: HYDROmorphone 1 MG/1 ML INJ IV PRN (03:13)
[2020-10-18] MEDS: PIPERACIL/TAZOBACTA 4.5/NS 100 4.5 GM/100 ML VIAL IV SCH ×3 (05:34→21:50)
[2020-10-18 05:48] LABS: Basophils % (Auto) 0.1 % (0.0-1.8); Eosinophils % (Auto) 0.1 % (0.0-4.3); Hemoglobin 13.9 gm/dl (11.8-15.2); Lymphocytes # (Auto) 0.7 K/mm3 (1.2-5.4); Lymphocytes % (Auto) 9.2 % (13.4-35.0); Mean Corpuscular HGB Conc 34 % (32-34); Mean Corpuscular Volume 92 fl (84-94); Monocytes # (Auto) 0.7 K/mm3 (0.0-0.8); Monocytes % (Auto) 9.7 % (0.0-7.3); Platelet Count 235 K/mm3 (140-440); Red Blood Count 4.45 M/mm3 (3.65-5.03); Red Cell Distribution Width 16.5 % (13.2-15.2)
[2020-10-18 05:59] LABS: BUN/Creatinine Ratio 12; Blood Urea Nitrogen 12 mg/dL (9-20); Calcium 8.4 mg/dL (8.4-10.2); Hemolysis Index 1
[2020-10-18] MEDS: PANTOPRAZOLE 40 MG INJ IV SCH ×2 (09:14→21:50)
--- NOTE | 2020-10-18 09:14 | Progress Note ---
Assessment and Plan Assessment and plan: (1) Perforated abdominal viscus Current Visit: Yes Status: Acute Plan to address problem: Patient was taken for emergent abdominal surgery for repair of perforated viscus Perforated viscus may be in the duodenum or the lower esophagus Dr. Briceño consulted N.p.o. for now IVF Zosyn for now (2) Dehydration Current Visit: Yes Status: Acute Plan to address problem: IV fluids for now (3) Peritonitis Current Visit: Yes Status: Acute Plan to address problem: Secondary to perforation IV Zosyn for now (4) DVT prophylaxis Current Visit: Yes Status: Acute Plan to address problem: On SCDs and GI prophylaxis 10/17 -Status post patch worsening of the perforated gastric ulcer and omentoplasty by Dr. Briceño -Continue IV antibiotics for now -We will follow Dr. Briceño's recommendation -I ordered IV PPI -Cocaine use; counseled about cessation of using cocaine 10/18 -Continue Zosyn -Follow recommendation from general surgery -Continue with IV PPI History Interval history: Patient was seen and evaluated this morning Patient said he has abdominal pain Hospitalist Physical - Physical exam Narrative exam: Not in cardiopulmonary distress. The patient appeared well nourished and normally developed. Vital signs as documented. Head exam is unremarkable. No scleral icterus . Neck is without jugular venous distension, thyromegaly, or carotid bruits. Lungs are clear to auscultation. Cardiac exam reveals regular rate and Rhythm. Abdominal exam reveals moderate tenderness. Extremities are nonedematous and both femoral and pedal pulses are normal. HAND CROCHETER: Alert and oriented 3. No focal weakness. - Constitutional Vitals: Temp Pulse Resp BP Pulse Ox 98.1 F 91 H 16 106/70 95 10/18/20 07:28 10/18/20 07:28 10/18/20 07:28 10/18/20 07:28 10/18/20 07:28 General appearance: Present: no acute distress, well-nourished Results - Labs CBC & Chem 7: 10/18/20 04:35 10/18/20 04:35 Labs: Laboratory Last Values WBC 7.2 K/mm3 (4.5-11.0) 10/18/20 04:35 RBC 4.45 M/mm3 (3.65-5.03) 10/18/20 04:35 Hgb 13.9 gm/dl (11.8-15.2) 10/18/20 04:35 Hct 41.0 % (35.5-45.6) 10/18/20 04:35 MCV 92 fl (84-94) 10/18/20 04:35 MCH 31 pg (28-32) 10/18/20 04:35 MCHC 34 % (32-34) 10/18/20 04:35 RDW 16.5 % (13.2-15.2) H 10/18/20 04:35 Plt Count 235 K/mm3 (140-440) 10/18/20 04:35 Lymph % (Auto) 9.2 % (13.4-35.0) L 10/18/20 04:35 [place] % (Auto) 9.7 % (0.0-7.3) H 10/18/20 04:35 Eos % (Auto) 0.1 % (0.0-4.3) 10/18/20 04:35 Baso % (Auto) 0.1 % (0.0-1.8) 10/18/20 04:35 Lymph # (Auto) 0.7 K/mm3 (1.2-5.4) L 10/18/20 04:35 [place] # (Auto) 0.7 K/mm3 (0.0-0.8) 10/18/20 04:35 Eos # (Auto) 0.0 K/mm3 (0.0-0.4) 10/18/20 04:35 Baso # (Auto) 0.0 K/mm3 (0.0-0.1) 10/18/20 04:35 Add Manual Diff Complete 10/16/20 09:44 Total Counted 100 10/16/20 09:44 Seg Neutrophils % 80.9 % (40.0-70.0) H 10/18/20 04:35 Seg Neuts % (Manual) 75.0 % (40.0-70.0) H 10/16/20 09:44 Band Neutrophils % 14.0 % 10/16/20 09:44 Lymphocytes % (Manual) 9.0 % (13.4-35.0) L 10/16/20 09:44 Monocytes % (Manual) 2.0 % (0.0-7.3) 10/16/20 09:44 Nucleated RBC % Not Reportable 10/16/20 09:44 Seg Neutrophils # 5.9 K/mm3 (1.8-7.7) 10/18/20 04:35 Seg Neutrophils # Man 5.3 K/mm3 (1.8-7.7) 10/16/20 09:44 Band Neutrophils # 1.0 K/mm3 10/16/20 09:44 Lymphocytes # (Manual) 0.6 K/mm3 (1.2-5.4) L 10/16/20 09:44 Abs React Lymphs (Man) 0.0 K/mm3 10/16/20 09:44 Monocytes # (Manual) 0.1 K/mm3 (0.0-0.8) 10/16/20 09:44 Eosinophils # (Manual) 0.0 K/mm3 (0.0-0.4) 10/16/20 09:44 Basophils # (Manual) 0.0 K/mm3 (0.0-0.1) 10/16/20 09:44 Metamyelocytes # 0.0 K/mm3 10/16/20 09:44 Myelocytes # 0.0 K/mm3 10/16/20 09:44 Promyelocytes # 0.0 K/mm3 10/16/20 09:44 Blast Cells # 0.0 K/mm3 10/16/20 09:44 WBC Morphology Not Reportable 10/16/20 09:44 Hypersegmented Neuts Not Reportable 10/16/20 09:44 Hyposegmented Neuts Not Reportable 10/16/20 09:44 Hypogranular Neuts Not Reportable 10/16/20 09:44 Smudge Cells Not Reportable 10/16/20 09:44 Toxic Granulation Not Reportable 10/16/20 09:44 Toxic Vacuolation Not Reportable 10/16/20 09:44 Dohle Bodies Not Reportable 10/16/20 09:44 Pelger-Huet Anomaly Not Reportable 10/16/20 09:44 Flori Rods Not Reportable 10/16/20 09:44 Platelet Estimate Consistent w auto 10/16/20 09:44 Clumped Platelets Not Reportable 10/16/20 09:44 Plt Clumps, EDTA Not Reportable 10/16/20 09:44 Large Platelets Not Reportable 10/16/20 09:44 Giant Platelets Not Reportable 10/16/20 09:44 Platelet Satelliting Not Reportable 10/16/20 09:44 Plt Morphology Comment Not Reportable 10/16/20 09:44 RBC Morphology Normal 10/16/20 09:44 Dimorphic RBCs Not Reportable 10/16/20 09:44 Polychromasia Not Reportable 10/16/20 09:44 Hypochromasia Not Reportable 10/16/20 09:44 Poikilocytosis Not Reportable 10/16/20 09:44 Anisocytosis Not Reportable 10/16/20 09:44 Microcytosis Not Reportable 10/16/20 09:44 Macrocytosis Not Reportable 10/16/20 09:44 Spherocytes Not Reportable 10/16/20 09:44 Pappenheimer Bodies Not Reportable 10/16/20 09:44 Sickle Cells Not Reportable 10/16/20 09:44 Target Cells Not Reportable 10/16/20 09:44 Tear Drop Cells Not Reportable 10/16/20 09:44 Ovalocytes Not Reportable 10/16/20 09:44 Helmet Cells Not Reportable 10/16/20 09:44 [place] Bodies Not Reportable 10/16/20 09:44 [place] Rings Not Reportable 10/16/20 09:44 [place] Cells Not Reportable 10/16/20 09:44 Bite Cells Not Reportable 10/16/20 09:44 Crenated Cell Not Reportable 10/16/20 09:44 Elliptocytes Not Reportable 10/16/20 09:44 Acanthocytes (Spur) Not Reportable 10/16/20 09:44 Rouleaux Not Reportable 10/16/20 09:44 Hemoglobin C Crystals Not Reportable 10/16/20 09:44 Schistocytes Not Reportable 10/16/20 09:44 Malaria parasites Not Reportable 10/16/20 09:44 Kalia Bodies Not Reportable 10/16/20 09:44 Hem Pathologist Commnt No 10/16/20 09:44 Sodium 139 mmol/L (137-145) 10/18/20 04:35 Potassium 3.8 mmol/L (3.6-5.0) 10/18/20 04:35 Chloride 103.7 mmol/L (98-107) 10/18/20 04:35 Carbon Dioxide 26 mmol/L (22-30) 10/18/20 04:35 Anion Gap 13 mmol/L 10/18/20 04:35 BUN 12 mg/dL (9-20) 10/18/20 04:35 Creatinine 1.0 mg/dL (0.8-1.3) 10/18/20 04:35 Estimated GFR > 60 ml/min 10/18/20 04:35 BUN/Creatinine Ratio 12 % 10/18/20 04:35 Glucose 95 mg/dL (75-100) 10/18/20 04:35 Hemoglobin A1c 5.8 % (4-6) 10/17/20 06:41 Calcium 8.4 mg/dL (8.4-10.2) 10/18/20 04:35 Total Bilirubin 0.60 mg/dL (0.1-1.2) 10/16/20 09:44 Direct Bilirubin < 0.2 mg/dL (0-0.2) 10/16/20 09:44 Indirect Bilirubin 0.4 mg/dL 10/16/20 09:44 AST 40 units/L (5-40) 10/16/20 09:44 ALT 21 units/L (7-56) 10/16/20 09:44 Alkaline Phosphatase 56 units/L (35-129) 10/16/20 09:44 Total Protein 6.8 g/dL (6.3-8.2) 10/16/20 09:44 Albumin 4.4 g/dL (3.9-5) 10/16/20 09:44 Albumin/Globulin Ratio 1.8 % 10/16/20 09:44 Lipase 99 units/L (13-60) H 10/16/20 09:44 Urine Color Yellow (Yellow) 10/16/20 Unknown Urine Turbidity Clear (Clear) 10/16/20 Unknown Urine pH 5.0 (5.0-7.0) 10/16/20 Unknown Ur Specific [place] 1.035 (1.003-1.030) H 10/16/20 Unknown Urine Protein <15 mg/dl mg/dL (Negative) 10/16/20 Unknown Urine Glucose (UA) Neg mg/dL (Negative) 10/16/20 Unknown Urine Ketones 80 mg/dL (Negative) 10/16/20 Unknown Urine Blood Neg (Negative) 10/16/20 Unknown Urine Nitrite Neg (Negative) 10/16/20 Unknown Urine Bilirubin Neg (Negative) 10/16/20 Unknown Urine Urobilinogen < 2.0 mg/dL (<2.0) 10/16/20 Unknown Ur Leukocyte Esterase Neg (Negative) 10/16/20 Unknown Urine WBC (Auto) < 1.0 /HPF (0.0-6.0) 10/16/20 Unknown Urine RBC (Auto) < 1.0 /HPF (0.0-6.0) 10/16/20 Unknown U Epithel Cells (Auto) < 1.0 /HPF (0-13.0) 10/16/20 Unknown Uric Acid Crystals Few 10/16/20 Unknown Urine Mucus Few /HPF 10/16/20 Unknown Urine Opiates Screen Negative 10/16/20 Unknown Urine Methadone Screen Negative 10/16/20 Unknown Ur Barbiturates Screen Negative 10/16/20 Unknown Ur Phencyclidine Scrn Negative 10/16/20 Unknown Ur Amphetamines Screen Negative 10/16/20 Unknown U Benzodiazepines Scrn Negative 10/16/20 Unknown Urine Cocaine Screen Positive 10/16/20 Unknown U Marijuana (THC) Screen Negative 10/16/20 Unknown Drugs of Abuse Note Disclamer 10/16/20 Unknown Carrero/IV: Voiding Method Indwelling Catheter Active Medications - Current Medications Current Medications: Generic Name Dose Route Start Last Admin Trade Name Freq PRN Reason Stop Dose Admin Acetaminophen 650 mg 10/16/20 21:17 Acetaminophen 325 Mg Tab PO Q4H PRN Pain MILD(1-3)/Fever >100.5/CASTELLANO Hydromorphone HCl 0.5 mg 10/16/20 21:17 10/18/20 03:13 Hydromorphone 1 Mg/1 Ml Inj IV 0.5 mg Q3H PRN Administration Pain , Severe (7-10) Dextrose/Sodium Chloride 1,000 mls @ 75 mls/hr 10/16/20 22:00 10/17/20 22:40 D5ns IV 75 mls/hr DIRECT MASSIEL Administration Piperacillin Sod/Tazobactam Sod 4.5 gm in 100 mls @ 200 mls/hr 10/17/20 14:00 10/18/20 05:34 Zosyn/Ns 4.5gm/100ml IV 200 mls/hr Q8HR MASSIEL Administration Metoclopramide HCl 10 mg 10/16/20 21:17 Metoclopramide 10 Mg/2 Ml Inj IV Q6H PRN Nausea And Vomiting Morphine Sulfate 2 mg 10/16/20 21:17 10/17/20 19:35 Morphine 2 Mg/1 Ml Inj IV 2 mg Q4H PRN Administration Pain, Moderate (4-6) Ondansetron HCl 4 mg 10/16/20 21:17 Ondansetron 4 Mg/2 Ml Inj IV Q3H PRN Nausea And Vomiting Pantoprazole Sodium 40 mg 10/16/20 22:00 10/17/20 22:34 Pantoprazole 40 Mg Inj IV 40 mg BID MASSIEL Administration Sodium Chloride 10 ml 10/16/20 22:00 10/17/20 22:35 Sodium Chloride 0.9% 10 Ml Flush Syringe IV 10 ml BID MASSEIL Administration Sodium Chloride 10 ml 10/16/20 21:17 Sodium Chloride 0.9% 10 Ml Flush Syringe IV PRN PRN LINE FLUSH
[2020-10-18] MEDS: D5W/0.9% NACL 1,000 ML IV SCH (11:56)
--- NOTE | 2020-10-18 13:10 | Progress Note ---
Assessment and Plan - Patient Problems (1) Perforated abdominal viscus Current Visit: Yes Status: Acute Plan to address problem: 1) Continue NG 2) Continue Zosyn 3) CBC, BMP & AXR in the am 4) I am going out of town. 's Hieu/Jeremy will assume care in my absence. 5) Begin dressing changes to abdominal wound. Subjective Date of service: 10/18/20 Patient Reports: Positive: no new complaints, feels better, no flatus, no bowel movement (Has ambulated.) Objective Vital Signs - 12hr 10/18/20 10/18/20 10/18/20 04:01 04:45 07:28 Temperature 98.2 F 98.1 F Pulse Rate 89 91 H Respiratory 18 16 Rate Blood Pressure 113/77 106/70 O2 Sat by Pulse 98 95 95 Oximetry - Abdomen soft, bowel sounds hypoactive (ND, appropriately TTP) - Labs 10/18/20 04:35 10/18/20 04:35 Diabetes panel 10/18/20 Range/Units 04:35 Sodium 139 (137-145) mmol/L Potassium 3.8 (3.6-5.0) mmol/L Chloride 103.7 (98-107) mmol/L Carbon Dioxide 26 (22-30) mmol/L BUN 12 (9-20) mg/dL Creatinine 1.0 (0.8-1.3) mg/dL Glucose 95 (75-100) mg/dL Calcium 8.4 (8.4-10.2) mg/dL Calcium panel 10/18/20 Range/Units 04:35 Calcium 8.4 (8.4-10.2) mg/dL Pituitary panel 10/18/20 Range/Units 04:35 Sodium 139 (137-145) mmol/L Potassium 3.8 (3.6-5.0) mmol/L Chloride 103.7 (98-107) mmol/L Carbon Dioxide 26 (22-30) mmol/L BUN 12 (9-20) mg/dL Creatinine 1.0 (0.8-1.3) mg/dL Glucose 95 (75-100) mg/dL Calcium 8.4 (8.4-10.2) mg/dL Adrenal panel 10/18/20 Range/Units 04:35 Sodium 139 (137-145) mmol/L Potassium 3.8 (3.6-5.0) mmol/L Chloride 103.7 (98-107) mmol/L Carbon Dioxide 26 (22-30) mmol/L BUN 12 (9-20) mg/dL Creatinine 1.0 (0.8-1.3) mg/dL Glucose 95 (75-100) mg/dL Calcium 8.4 (8.4-10.2) mg/dL
[2020-10-19] MEDS: PIPERACIL/TAZOBACTA 4.5/NS 100 4.5 GM/100 ML VIAL IV SCH ×3 (06:20→22:41)
[2020-10-19] MEDS: SODIUM HYPOCHLORITE, DAKIN'S FULL STRENGTH (0.5%) 473 ML TOPICAL SOLN TP SCH ×3 (06:37→20:58)
[2020-10-19] MEDS: MORPHINE 2 MG/1 ML INJ IV PRN ×2 (06:41→20:02)
[2020-10-19 08:42] LABS: Basophils % (Auto) 0.4 % (0.0-1.8); Eosinophils % (Auto) 0.1 % (0.0-4.3); Hematocrit 37.9 % (35.5-45.6); Hemoglobin 13.5 gm/dl (11.8-15.2); Lymphocytes # (Auto) 0.7 K/mm3 (1.2-5.4); Lymphocytes % (Auto) 8.4 % (13.4-35.0); Mean Corpuscular HGB Conc 36 % (32-34); Mean Corpuscular Volume 90 fl (84-94); Monocytes # (Auto) 0.6 K/mm3 (0.0-0.8); Monocytes % (Auto) 7.2 % (0.0-7.3); Platelet Count 250 K/mm3 (140-440); Red Blood Count 4.22 M/mm3 (3.65-5.03); Red Cell Distribution Width 16.2 % (13.2-15.2)
[2020-10-19 09:03] LABS: BUN/Creatinine Ratio 9; Blood Urea Nitrogen 8 mg/dL (9-20); Calcium 8.4 mg/dL (8.4-10.2); Hemolysis Index 3
--- NOTE | 2020-10-19 09:27 | XRay Report ---
ABDOMEN 2 VIEW(S) INDICATION / CLINICAL INFORMATION: ileus. COMPARISON: None available. FINDINGS: TUBES / LINES: Nasogastric tube terminates in the mid to distal stomach. BOWEL GAS PATTERN: The bowel gas pattern is unremarkable. No significant findings to suggest obstruct ion or ileus. FREE AIR / EXTRALUMINAL GAS: Small free air is identified beneath the right hemidiaphragm although it is decreased since 10/16/2020 exam. ADDITIONAL FINDINGS: No significant additional findings. IMPRESSION: No evidence for obstruction or significant ileus on x-ray. Signer Name: Williams Martinez Jr, MD Signed: 10/19/2020 9:23 AM Workstation Name: [id number]
--- NOTE | 2020-10-19 09:34 | Progress Note ---
Assessment and Plan Assessment and plan: (1) Perforated abdominal viscus Current Visit: Yes Status: Acute Plan to address problem: Patient was taken for emergent abdominal surgery for repair of perforated viscus Perforated viscus may be in the duodenum or the lower esophagus Dr. Briceño consulted N.p.o. for now IVF Zosyn for now (2) Dehydration Current Visit: Yes Status: Acute Plan to address problem: IV fluids for now (3) Peritonitis Current Visit: Yes Status: Acute Plan to address problem: Secondary to perforation IV Zosyn for now (4) DVT prophylaxis Current Visit: Yes Status: Acute Plan to address problem: On SCDs and GI prophylaxis 10/17 -Status post patch worsening of the perforated gastric ulcer and omentoplasty by Dr. Briceño -Continue IV antibiotics for now -We will follow Dr. Briceño's recommendation -I ordered IV PPI -Cocaine use; counseled about cessation of using cocaine 10/18 -Continue Zosyn -Follow recommendation from general surgery -Continue with IV PPI 10/19 -Continue Zosyn and PPI -Abdominal x-ray was done this morning and showed no significant intestinal obstruction or ileus -Patient is on NG tube and general surgery is following History Interval history: Patient was seen and evaluated this morning Patient said he has abdominal pain Hospitalist Physical - Physical exam Narrative exam: Not in cardiopulmonary distress. The patient appeared well nourished and normally developed. Vital signs as documented. Head exam is unremarkable. No scleral icterus . Neck is without jugular venous distension, thyromegaly, or carotid bruits. Lungs are clear to auscultation. Cardiac exam reveals regular rate and Rhythm. Abdominal exam reveals moderate tenderness. Extremities are nonedematous and both femoral and pedal pulses are normal. TRANSPORT ANALYST: Alert and oriented 3. No focal weakness. - Constitutional Vitals: Temp Pulse Resp BP Pulse Ox 99.0 F 86 18 134/86 98 10/19/20 08:01 10/19/20 08:01 10/19/20 08:01 10/19/20 08:01 10/19/20 08:01 General appearance: Present: no acute distress, well-nourished Results - Labs CBC & Chem 7: 10/19/20 08:30 10/19/20 08:30 Labs: Laboratory Last Values WBC 8.0 K/mm3 (4.5-11.0) 10/19/20 08:30 RBC 4.22 M/mm3 (3.65-5.03) 10/19/20 08:30 Hgb 13.5 gm/dl (11.8-15.2) 10/19/20 08:30 Hct 37.9 % (35.5-45.6) 10/19/20 08:30 MCV 90 fl (84-94) 10/19/20 08:30 MCH 32 pg (28-32) 10/19/20 08:30 MCHC 36 % (32-34) H 10/19/20 08:30 RDW 16.2 % (13.2-15.2) H 10/19/20 08:30 Plt Count 250 K/mm3 (140-440) 10/19/20 08:30 Lymph % (Auto) 8.4 % (13.4-35.0) L 10/19/20 08:30 [place] % (Auto) 7.2 % (0.0-7.3) 10/19/20 08:30 Eos % (Auto) 0.1 % (0.0-4.3) 10/19/20 08:30 Baso % (Auto) 0.4 % (0.0-1.8) 10/19/20 08:30 Lymph # (Auto) 0.7 K/mm3 (1.2-5.4) L 10/19/20 08:30 [place] # (Auto) 0.6 K/mm3 (0.0-0.8) 10/19/20 08:30 Eos # (Auto) 0.0 K/mm3 (0.0-0.4) 10/19/20 08:30 Baso # (Auto) 0.0 K/mm3 (0.0-0.1) 10/19/20 08:30 Add Manual Diff Complete 10/16/20 09:44 Total Counted 100 10/16/20 09:44 Seg Neutrophils % 83.9 % (40.0-70.0) H 10/19/20 08:30 Seg Neuts % (Manual) 75.0 % (40.0-70.0) H 10/16/20 09:44 Band Neutrophils % 14.0 % 10/16/20 09:44 Lymphocytes % (Manual) 9.0 % (13.4-35.0) L 10/16/20 09:44 Monocytes % (Manual) 2.0 % (0.0-7.3) 10/16/20 09:44 Nucleated RBC % Not Reportable 10/16/20 09:44 Seg Neutrophils # 6.7 K/mm3 (1.8-7.7) 10/19/20 08:30 Seg Neutrophils # Man 5.3 K/mm3 (1.8-7.7) 10/16/20 09:44 Band Neutrophils # 1.0 K/mm3 10/16/20 09:44 Lymphocytes # (Manual) 0.6 K/mm3 (1.2-5.4) L 10/16/20 09:44 Abs React Lymphs (Man) 0.0 K/mm3 10/16/20 09:44 Monocytes # (Manual) 0.1 K/mm3 (0.0-0.8) 10/16/20 09:44 Eosinophils # (Manual) 0.0 K/mm3 (0.0-0.4) 10/16/20 09:44 Basophils # (Manual) 0.0 K/mm3 (0.0-0.1) 10/16/20 09:44 Metamyelocytes # 0.0 K/mm3 10/16/20 09:44 Myelocytes # 0.0 K/mm3 10/16/20 09:44 Promyelocytes # 0.0 K/mm3 10/16/20 09:44 Blast Cells # 0.0 K/mm3 10/16/20 09:44 WBC Morphology Not Reportable 10/16/20 09:44 Hypersegmented Neuts Not Reportable 10/16/20 09:44 Hyposegmented Neuts Not Reportable 10/16/20 09:44 Hypogranular Neuts Not Reportable 10/16/20 09:44 Smudge Cells Not Reportable 10/16/20 09:44 Toxic Granulation Not Reportable 10/16/20 09:44 Toxic Vacuolation Not Reportable 10/16/20 09:44 Dohle Bodies Not Reportable 10/16/20 09:44 Pelger-Huet Anomaly Not Reportable 10/16/20 09:44 Flori Rods Not Reportable 10/16/20 09:44 Platelet Estimate Consistent w auto 10/16/20 09:44 Clumped Platelets Not Reportable 10/16/20 09:44 Plt Clumps, EDTA Not Reportable 10/16/20 09:44 Large Platelets Not Reportable 10/16/20 09:44 Giant Platelets Not Reportable 10/16/20 09:44 Platelet Satelliting Not Reportable 10/16/20 09:44 Plt Morphology Comment Not Reportable 10/16/20 09:44 RBC Morphology Normal 10/16/20 09:44 Dimorphic RBCs Not Reportable 10/16/20 09:44 Polychromasia Not Reportable 10/16/20 09:44 Hypochromasia Not Reportable 10/16/20 09:44 Poikilocytosis Not Reportable 10/16/20 09:44 Anisocytosis Not Reportable 10/16/20 09:44 Microcytosis Not Reportable 10/16/20 09:44 Macrocytosis Not Reportable 10/16/20 09:44 Spherocytes Not Reportable 10/16/20 09:44 Pappenheimer Bodies Not Reportable 10/16/20 09:44 Sickle Cells Not Reportable 10/16/20 09:44 Target Cells Not Reportable 10/16/20 09:44 Tear Drop Cells Not Reportable 10/16/20 09:44 Ovalocytes Not Reportable 10/16/20 09:44 Helmet Cells Not Reportable 10/16/20 09:44 [place] Bodies Not Reportable 10/16/20 09:44 [place] Rings Not Reportable 10/16/20 09:44 [place] Cells Not Reportable 10/16/20 09:44 Bite Cells Not Reportable 10/16/20 09:44 Crenated Cell Not Reportable 10/16/20 09:44 Elliptocytes Not Reportable 10/16/20 09:44 Acanthocytes (Spur) Not Reportable 10/16/20 09:44 Rouleaux Not Reportable 10/16/20 09:44 Hemoglobin C Crystals Not Reportable 10/16/20 09:44 Schistocytes Not Reportable 10/16/20 09:44 Malaria parasites Not Reportable 10/16/20 09:44 Kalia Bodies Not Reportable 10/16/20 09:44 Hem Pathologist Commnt No 10/16/20 09:44 Sodium 141 mmol/L (137-145) 10/19/20 08:30 Potassium 3.6 mmol/L (3.6-5.0) 10/19/20 08:30 Chloride 106.4 mmol/L (98-107) 10/19/20 08:30 Carbon Dioxide 23 mmol/L (22-30) 10/19/20 08:30 Anion Gap 15 mmol/L 10/19/20 08:30 BUN 8 mg/dL (9-20) L 10/19/20 08:30 Creatinine 0.9 mg/dL (0.8-1.3) 10/19/20 08:30 Estimated GFR > 60 ml/min 10/19/20 08:30 BUN/Creatinine Ratio 9 % 10/19/20 08:30 Glucose 116 mg/dL (75-100) H 10/19/20 08:30 Hemoglobin A1c 5.8 % (4-6) 10/17/20 06:41 Calcium 8.4 mg/dL (8.4-10.2) 10/19/20 08:30 Total Bilirubin 0.60 mg/dL (0.1-1.2) 10/16/20 09:44 Direct Bilirubin < 0.2 mg/dL (0-0.2) 10/16/20 09:44 Indirect Bilirubin 0.4 mg/dL 10/16/20 09:44 AST 40 units/L (5-40) 10/16/20 09:44 ALT 21 units/L (7-56) 10/16/20 09:44 Alkaline Phosphatase 56 units/L (35-129) 10/16/20 09:44 Total Protein 6.8 g/dL (6.3-8.2) 10/16/20 09:44 Albumin 4.4 g/dL (3.9-5) 10/16/20 09:44 Albumin/Globulin Ratio 1.8 % 10/16/20 09:44 Lipase 99 units/L (13-60) H 10/16/20 09:44 Urine Color Yellow (Yellow) 10/16/20 Unknown Urine Turbidity Clear (Clear) 10/16/20 Unknown Urine pH 5.0 (5.0-7.0) 10/16/20 Unknown Ur Specific [place] 1.035 (1.003-1.030) H 10/16/20 Unknown Urine Protein <15 mg/dl mg/dL (Negative) 10/16/20 Unknown Urine Glucose (UA) Neg mg/dL (Negative) 10/16/20 Unknown Urine Ketones 80 mg/dL (Negative) 10/16/20 Unknown Urine Blood Neg (Negative) 10/16/20 Unknown Urine Nitrite Neg (Negative) 10/16/20 Unknown Urine Bilirubin Neg (Negative) 10/16/20 Unknown Urine Urobilinogen < 2.0 mg/dL (<2.0) 10/16/20 Unknown Ur Leukocyte Esterase Neg (Negative) 10/16/20 Unknown Urine WBC (Auto) < 1.0 /HPF (0.0-6.0) 10/16/20 Unknown Urine RBC (Auto) < 1.0 /HPF (0.0-6.0) 10/16/20 Unknown U Epithel Cells (Auto) < 1.0 /HPF (0-13.0) 10/16/20 Unknown Uric Acid Crystals Few 10/16/20 Unknown Urine Mucus Few /HPF 10/16/20 Unknown Urine Opiates Screen Negative 10/16/20 Unknown Urine Methadone Screen Negative 10/16/20 Unknown Ur Barbiturates Screen Negative 10/16/20 Unknown Ur Phencyclidine Scrn Negative 10/16/20 Unknown Ur Amphetamines Screen Negative 10/16/20 Unknown U Benzodiazepines Scrn Negative 10/16/20 Unknown Urine Cocaine Screen Positive 10/16/20 Unknown U Marijuana (THC) Screen Negative 10/16/20 Unknown Drugs of Abuse Note Disclamer 10/16/20 Unknown Microbiology: Microbiology 10/16/20 Unknown Abdomen Anaerobic Culture - Preliminary Carrero/IV: Voiding Method Urinal Active Medications - Current Medications Current Medications: Generic Name Dose Route Start Last Admin Trade Name Freq PRN Reason Stop Dose Admin Acetaminophen 650 mg 10/16/20 21:17 Acetaminophen 325 Mg Tab PO Q4H PRN Pain MILD(1-3)/Fever >100.5/CASTELLANO Hydromorphone HCl 0.5 mg 10/16/20 21:17 10/18/20 03:13 Hydromorphone 1 Mg/1 Ml Inj IV 0.5 mg Q3H PRN Administration Pain , Severe (7-10) Dextrose/Sodium Chloride 1,000 mls @ 75 mls/hr 10/16/20 22:00 10/18/20 11:56 D5ns IV 75 mls/hr DIRECT MASSIEL Administration Piperacillin Sod/Tazobactam Sod 4.5 gm in 100 mls @ 200 mls/hr 10/17/20 14:00 10/19/20 06:20 Zosyn/Ns 4.5gm/100ml IV 200 mls/hr Q8HR MASSIEL Administration Metoclopramide HCl 10 mg 10/16/20 21:17 Metoclopramide 10 Mg/2 Ml Inj IV Q6H PRN Nausea And Vomiting Morphine Sulfate 2 mg 10/16/20 21:17 10/19/20 06:41 Morphine 2 Mg/1 Ml Inj IV 2 mg Q4H PRN Administration Pain, Moderate (4-6) Ondansetron HCl 4 mg 10/16/20 21:17 Ondansetron 4 Mg/2 Ml Inj IV Q3H PRN Nausea And Vomiting Pantoprazole Sodium 40 mg 10/16/20 22:00 10/18/20 21:50 Pantoprazole 40 Mg Inj IV 40 mg BID MASSIEL Administration Sodium Chloride 10 ml 10/16/20 22:00 10/19/20 06:38 Sodium Chloride 0.9% 10 Ml Flush Syringe IV 10 ml BID MASSIEL Administration Sodium Chloride 10 ml 10/16/20 21:17 Sodium Chloride 0.9% 10 Ml Flush Syringe IV PRN PRN LINE FLUSH Sodium Hypochlorite 1 applic 10/18/20 14:00 10/19/20 06:37 Sodium Hypochlorite, Dakin's Full Strength (0.5%) 473 Ml Topical Soln TP 11/01/20 13:59 1 applicatio Q12H MASSIEL Administration
[2020-10-19] MEDS: PANTOPRAZOLE 40 MG INJ IV SCH ×2 (10:59→22:41)
--- NOTE | 2020-10-19 14:24 | Progress Note ---
Assessment and Plan 40-year-old male postop day 4 status post ex lap with Kris patch repair of perforated gastric ulcer. Clinically with postop ileus and remains afebrile and stable. We will continue NG tube to suction and wait for return of bowel function. Will order upper GI to test integrity of repair prior to removal of NG tube. Subjective Date of service: 10/19/20 Narrative: No acute events overnight. Patient says overall he is feeling better with improved abdominal pain. Denies passing any flatus. Objective Vital Signs - 12hr 10/19/20 10/19/20 10/19/20 05:20 06:41 07:11 Temperature 98.8 F Pulse Rate 97 H Respiratory 18 17 17 Rate Blood Pressure 132/92 O2 Sat by Pulse 100 Oximetry 10/19/20 10/19/20 08:01 11:19 Temperature 99.0 F 98.5 F Pulse Rate 86 81 Respiratory 18 18 Rate Blood Pressure 134/86 129/94 O2 Sat by Pulse 98 98 Oximetry - General physical appearance well developed, no distress, no pain - Respiratory normal expansion, normal respiratory effort - Abdomen soft, other (Bandages clean dry and intact, appropriately tender to palpation, NG tube with 500 cc bilious fluid past 24 hours) - Labs 10/19/20 08:30 10/19/20 08:30 Diabetes panel 10/19/20 Range/Units 08:30 Sodium 141 (137-145) mmol/L Potassium 3.6 (3.6-5.0) mmol/L Chloride 106.4 (98-107) mmol/L Carbon Dioxide 23 (22-30) mmol/L BUN 8 L (9-20) mg/dL Creatinine 0.9 (0.8-1.3) mg/dL Glucose 116 H (75-100) mg/dL Calcium 8.4 (8.4-10.2) mg/dL Calcium panel 10/19/20 Range/Units 08:30 Calcium 8.4 (8.4-10.2) mg/dL Pituitary panel 10/19/20 Range/Units 08:30 Sodium 141 (137-145) mmol/L Potassium 3.6 (3.6-5.0) mmol/L Chloride 106.4 (98-107) mmol/L Carbon Dioxide 23 (22-30) mmol/L BUN 8 L (9-20) mg/dL Creatinine 0.9 (0.8-1.3) mg/dL Glucose 116 H (75-100) mg/dL Calcium 8.4 (8.4-10.2) mg/dL Adrenal panel 10/19/20 Range/Units 08:30 Sodium 141 (137-145) mmol/L Potassium 3.6 (3.6-5.0) mmol/L Chloride 106.4 (98-107) mmol/L Carbon Dioxide 23 (22-30) mmol/L BUN 8 L (9-20) mg/dL Creatinine 0.9 (0.8-1.3) mg/dL Glucose 116 H (75-100) mg/dL Calcium 8.4 (8.4-10.2) mg/dL
[2020-10-19] MEDS: HYDROmorphone 1 MG/1 ML INJ IV PRN (22:41)
[2020-10-20] MEDS: PIPERACIL/TAZOBACTA 4.5/NS 100 4.5 GM/100 ML VIAL IV SCH ×3 (07:31→21:52)
[2020-10-20] MEDS: SODIUM HYPOCHLORITE, DAKIN'S FULL STRENGTH (0.5%) 473 ML TOPICAL SOLN TP SCH ×2 (07:34→13:20)
[2020-10-20] MEDS: PANTOPRAZOLE 40 MG INJ IV SCH ×2 (10:43→21:53)
[2020-10-20] MEDS: D5W/0.9% NACL 1,000 ML IV SCH (10:43)
--- NOTE | 2020-10-20 12:10 | Progress Note ---
Assessment and Plan - Patient Problems (1) Perforated abdominal viscus Current Visit: Yes Status: Acute Plan to address problem: Patient status post surgical intervention. Continue management as per surgical team recommendations. (2) Peritonitis Current Visit: Yes Status: Acute Plan to address problem: IV antibiotic therapy, supportive care, repeat CBC in a.m. (3) Dehydration Current Visit: Yes Status: Acute Plan to address problem: IV fluid resuscitation therapy, supportive care, monitor urine output every shift. (4) DVT prophylaxis Current Visit: Yes Status: Acute Plan to address problem: SCD to bilateral lower extremities while in bed History Interval history: 40 YO Male with perforated viscus complicated by peritonitis, volume depletion. No reported nursing events. No reports of pain. Patient resting comfortably in bed. Patient denies fever, chills, chest pain, nausea vomiting diarrhea. Hospitalist Physical - Constitutional Vitals: Temp Pulse Resp BP Pulse Ox 98.6 F 85 18 129/94 98 10/20/20 08:08 10/20/20 08:08 10/20/20 08:08 10/20/20 08:08 10/20/20 10:00 General appearance: Present: no acute distress, well-nourished - EENT Eyes: Present: PERRL, EOM intact ENT: hearing intact - Neck Neck: Present: supple - Respiratory Respiratory effort: normal Respiratory: bilateral: CTA - Cardiovascular Rhythm: regular Heart Sounds: Present: S1 & S2 - Extremities Extremities: no ischemia Peripheral Pulses: within normal limits - Abdominal General gastrointestinal: soft, non-distended, other (Appropriately tender) - Integumentary Integumentary: Present: clear, dry - Psychiatric Psychiatric: appropriate mood/affect, cooperative - Neurologic Neurologic: CNII-XII intact Results - Labs CBC & Chem 7: 10/21/20 04:30 10/19/20 08:30 Labs: Laboratory Last Values WBC 8.0 K/mm3 (4.5-11.0) 10/19/20 08:30 RBC 4.22 M/mm3 (3.65-5.03) 10/19/20 08:30 Hgb 13.5 gm/dl (11.8-15.2) 10/19/20 08:30 Hct 37.9 % (35.5-45.6) 10/19/20 08:30 MCV 90 fl (84-94) 10/19/20 08:30 MCH 32 pg (28-32) 10/19/20 08:30 MCHC 36 % (32-34) H 10/19/20 08:30 RDW 16.2 % (13.2-15.2) H 10/19/20 08:30 Plt Count 250 K/mm3 (140-440) 10/19/20 08:30 Lymph % (Auto) 8.4 % (13.4-35.0) L 10/19/20 08:30 [place] % (Auto) 7.2 % (0.0-7.3) 10/19/20 08:30 Eos % (Auto) 0.1 % (0.0-4.3) 10/19/20 08:30 Baso % (Auto) 0.4 % (0.0-1.8) 10/19/20 08:30 Lymph # (Auto) 0.7 K/mm3 (1.2-5.4) L 10/19/20 08:30 [place] # (Auto) 0.6 K/mm3 (0.0-0.8) 10/19/20 08:30 Eos # (Auto) 0.0 K/mm3 (0.0-0.4) 10/19/20 08:30 Baso # (Auto) 0.0 K/mm3 (0.0-0.1) 10/19/20 08:30 Add Manual Diff Complete 10/16/20 09:44 Total Counted 100 10/16/20 09:44 Seg Neutrophils % 83.9 % (40.0-70.0) H 10/19/20 08:30 Seg Neuts % (Manual) 75.0 % (40.0-70.0) H 10/16/20 09:44 Band Neutrophils % 14.0 % 10/16/20 09:44 Lymphocytes % (Manual) 9.0 % (13.4-35.0) L 10/16/20 09:44 Monocytes % (Manual) 2.0 % (0.0-7.3) 10/16/20 09:44 Nucleated RBC % Not Reportable 10/16/20 09:44 Seg Neutrophils # 6.7 K/mm3 (1.8-7.7) 10/19/20 08:30 Seg Neutrophils # Man 5.3 K/mm3 (1.8-7.7) 10/16/20 09:44 Band Neutrophils # 1.0 K/mm3 10/16/20 09:44 Lymphocytes # (Manual) 0.6 K/mm3 (1.2-5.4) L 10/16/20 09:44 Abs React Lymphs (Man) 0.0 K/mm3 10/16/20 09:44 Monocytes # (Manual) 0.1 K/mm3 (0.0-0.8) 10/16/20 09:44 Eosinophils # (Manual) 0.0 K/mm3 (0.0-0.4) 10/16/20 09:44 Basophils # (Manual) 0.0 K/mm3 (0.0-0.1) 10/16/20 09:44 Metamyelocytes # 0.0 K/mm3 10/16/20 09:44 Myelocytes # 0.0 K/mm3 10/16/20 09:44 Promyelocytes # 0.0 K/mm3 10/16/20 09:44 Blast Cells # 0.0 K/mm3 10/16/20 09:44 WBC Morphology Not Reportable 10/16/20 09:44 Hypersegmented Neuts Not Reportable 10/16/20 09:44 Hyposegmented Neuts Not Reportable 10/16/20 09:44 Hypogranular Neuts Not Reportable 10/16/20 09:44 Smudge Cells Not Reportable 10/16/20 09:44 Toxic Granulation Not Reportable 10/16/20 09:44 Toxic Vacuolation Not Reportable 10/16/20 09:44 Dohle Bodies Not Reportable 10/16/20 09:44 Pelger-Huet Anomaly Not Reportable 10/16/20 09:44 Flori Rods Not Reportable 10/16/20 09:44 Platelet Estimate Consistent w auto 10/16/20 09:44 Clumped Platelets Not Reportable 10/16/20 09:44 Plt Clumps, EDTA Not Reportable 10/16/20 09:44 Large Platelets Not Reportable 10/16/20 09:44 Giant Platelets Not Reportable 10/16/20 09:44 Platelet Satelliting Not Reportable 10/16/20 09:44 Plt Morphology Comment Not Reportable 10/16/20 09:44 RBC Morphology Normal 10/16/20 09:44 Dimorphic RBCs Not Reportable 10/16/20 09:44 Polychromasia Not Reportable 10/16/20 09:44 Hypochromasia Not Reportable 10/16/20 09:44 Poikilocytosis Not Reportable 10/16/20 09:44 Anisocytosis Not Reportable 10/16/20 09:44 Microcytosis Not Reportable 10/16/20 09:44 Macrocytosis Not Reportable 10/16/20 09:44 Spherocytes Not Reportable 10/16/20 09:44 Pappenheimer Bodies Not Reportable 10/16/20 09:44 Sickle Cells Not Reportable 10/16/20 09:44 Target Cells Not Reportable 10/16/20 09:44 Tear Drop Cells Not Reportable 10/16/20 09:44 Ovalocytes Not Reportable 10/16/20 09:44 Helmet Cells Not Reportable 10/16/20 09:44 Martines-[place] Bodies Not Reportable 10/16/20 09:44 Rufus Rings Not Reportable 10/16/20 09:44 [place] Cells Not Reportable 10/16/20 09:44 Bite Cells Not Reportable 10/16/20 09:44 Crenated Cell Not Reportable 10/16/20 09:44 Elliptocytes Not Reportable 10/16/20 09:44 Acanthocytes (Spur) Not Reportable 10/16/20 09:44 Rouleaux Not Reportable 10/16/20 09:44 Hemoglobin C Crystals Not Reportable 10/16/20 09:44 Schistocytes Not Reportable 10/16/20 09:44 Malaria parasites Not Reportable 10/16/20 09:44 Kalia Bodies Not Reportable 10/16/20 09:44 Hem Pathologist Commnt No 10/16/20 09:44 Sodium 141 mmol/L (137-145) 10/19/20 08:30 Potassium 3.6 mmol/L (3.6-5.0) 10/19/20 08:30 Chloride 106.4 mmol/L (98-107) 10/19/20 08:30 Carbon Dioxide 23 mmol/L (22-30) 10/19/20 08:30 Anion Gap 15 mmol/L 10/19/20 08:30 BUN 8 mg/dL (9-20) L 10/19/20 08:30 Creatinine 0.9 mg/dL (0.8-1.3) 10/19/20 08:30 Estimated GFR > 60 ml/min 10/19/20 08:30 BUN/Creatinine Ratio 9 % 10/19/20 08:30 Glucose 116 mg/dL (75-100) H 10/19/20 08:30 Hemoglobin A1c 5.8 % (4-6) 10/17/20 06:41 Calcium 8.4 mg/dL (8.4-10.2) 10/19/20 08:30 Total Bilirubin 0.60 mg/dL (0.1-1.2) 10/16/20 09:44 Direct Bilirubin < 0.2 mg/dL (0-0.2) 10/16/20 09:44 Indirect Bilirubin 0.4 mg/dL 10/16/20 09:44 AST 40 units/L (5-40) 10/16/20 09:44 ALT 21 units/L (7-56) 10/16/20 09:44 Alkaline Phosphatase 56 units/L (35-129) 10/16/20 09:44 Total Protein 6.8 g/dL (6.3-8.2) 10/16/20 09:44 Albumin 4.4 g/dL (3.9-5) 10/16/20 09:44 Albumin/Globulin Ratio 1.8 % 10/16/20 09:44 Lipase 99 units/L (13-60) H 10/16/20 09:44 Urine Color Yellow (Yellow) 10/16/20 Unknown Urine Turbidity Clear (Clear) 10/16/20 Unknown Urine pH 5.0 (5.0-7.0) 10/16/20 Unknown Ur Specific [place] 1.035 (1.003-1.030) H 10/16/20 Unknown Urine Protein <15 mg/dl mg/dL (Negative) 10/16/20 Unknown Urine Glucose (UA) Neg mg/dL (Negative) 10/16/20 Unknown Urine Ketones 80 mg/dL (Negative) 10/16/20 Unknown Urine Blood Neg (Negative) 10/16/20 Unknown Urine Nitrite Neg (Negative) 10/16/20 Unknown Urine Bilirubin Neg (Negative) 10/16/20 Unknown Urine Urobilinogen < 2.0 mg/dL (<2.0) 10/16/20 Unknown Ur Leukocyte Esterase Neg (Negative) 10/16/20 Unknown Urine WBC (Auto) < 1.0 /HPF (0.0-6.0) 10/16/20 Unknown Urine RBC (Auto) < 1.0 /HPF (0.0-6.0) 10/16/20 Unknown U Epithel Cells (Auto) < 1.0 /HPF (0-13.0) 10/16/20 Unknown Uric Acid Crystals Few 10/16/20 Unknown Urine Mucus Few /HPF 10/16/20 Unknown Urine Opiates Screen Negative 10/16/20 Unknown Urine Methadone Screen Negative 10/16/20 Unknown Ur Barbiturates Screen Negative 10/16/20 Unknown Ur Phencyclidine Scrn Negative 10/16/20 Unknown Ur Amphetamines Screen Negative 10/16/20 Unknown U Benzodiazepines Scrn Negative 10/16/20 Unknown Urine Cocaine Screen Positive 10/16/20 Unknown U Marijuana (THC) Screen Negative 10/16/20 Unknown Drugs of Abuse Note Disclamer 10/16/20 Unknown Microbiology: Microbiology 10/16/20 Unknown Abdomen Surgical Culture - Preliminary Carrero/IV: Voiding Method Toilet Active Medications - Current Medications Current Medications: Generic Name Dose Route Start Last Admin Trade Name Freq PRN Reason Stop Dose Admin Acetaminophen 650 mg 10/16/20 21:17 Acetaminophen 325 Mg Tab PO Q4H PRN Pain MILD(1-3)/Fever >100.5/CASTELLANO Hydromorphone HCl 0.5 mg 10/16/20 21:17 10/19/20 22:41 Hydromorphone 1 Mg/1 Ml Inj IV 0.5 mg Q3H PRN Administration Pain , Severe (7-10) Dextrose/Sodium Chloride 1,000 mls @ 75 mls/hr 10/16/20 22:00 10/20/20 10:43 D5ns IV 75 mls/hr DIRECT MASSIEL Administration Piperacillin Sod/Tazobactam Sod 4.5 gm in 100 mls @ 200 mls/hr 10/17/20 14:00 10/20/20 07:31 Zosyn/Ns 4.5gm/100ml IV 200 mls/hr Q8HR MASSIEL Administration Metoclopramide HCl 10 mg 10/16/20 21:17 Metoclopramide 10 Mg/2 Ml Inj IV Q6H PRN Nausea And Vomiting Morphine Sulfate 2 mg 10/16/20 21:17 10/19/20 20:02 Morphine 2 Mg/1 Ml Inj IV 2 mg Q4H PRN Administration Pain, Moderate (4-6) Ondansetron HCl 4 mg 10/16/20 21:17 Ondansetron 4 Mg/2 Ml Inj IV Q3H PRN Nausea And Vomiting Pantoprazole Sodium 40 mg 10/16/20 22:00 10/20/20 10:43 Pantoprazole 40 Mg Inj IV 40 mg BID MASSIEL Administration Sodium Chloride 10 ml 10/16/20 22:00 10/20/20 10:45 Sodium Chloride 0.9% 10 Ml Flush Syringe IV Not Given BID MASSIEL Sodium Chloride 10 ml 10/16/20 21:17 Sodium Chloride 0.9% 10 Ml Flush Syringe IV PRN PRN LINE FLUSH Sodium Hypochlorite 1 applic 10/18/20 14:00 10/20/20 07:34 Sodium Hypochlorite, Dakin's Full Strength (0.5%) 473 Ml Topical Soln TP 11/01/20 13:59 Not Given Q12H MASSIEL
--- NOTE | 2020-10-20 12:52 | Progress Note ---
Assessment and Plan 40-year-old male postop day 4 status post ex lap with Kris patch repair of perforated gastric ulcer. Clinically with postop ileus that is showing signs of resolution with the exception of celestine NGT output. remains afebrile and stable. We will continue NG tube to suction and wait for further return of bowel function. Will order upper GI to test integrity of repair prior to removal of NG tube. Asked patient to limit the amount of ice chips he is taking to better account for recorded NG tube output Subjective Date of service: 10/20/20 Narrative: No acute events overnight. Patient says he started to pass gas within the last 15 minutes. Patient says his pain varies from 5-8 out of 10. Patient has been ambulating without difficulty. Patient denies eating or drinking with the exception of some ice chips however patient had high output out of his NG tube over the last 24 hours. Objective Vital Signs - 12hr 10/20/20 10/20/20 10/20/20 03:50 05:43 08:08 Temperature 97.8 F 98.6 F Pulse Rate 81 85 Respiratory 18 18 Rate Blood Pressure 126/92 129/94 O2 Sat by Pulse 98 97 96 Oximetry 10/20/20 10/20/20 10:00 12:05 Temperature 98.7 F Pulse Rate 80 Respiratory 18 Rate Blood Pressure 144/96 O2 Sat by Pulse 98 93 Oximetry - General physical appearance well developed, moderate pain - Respiratory normal expansion, normal respiratory effort - Abdomen soft, other (incision with clean packing, appropriately tender to palpation, NGT with brown biliious drainage.) - Labs 10/19/20 08:30 10/19/20 08:30
[2020-10-20] MEDS: HYDROmorphone 1 MG/1 ML INJ IV PRN (13:19)
[2020-10-21] MEDS: D5W/0.9% NACL 1,000 ML IV SCH ×2 (01:35→19:01)
[2020-10-21] MEDS: SODIUM HYPOCHLORITE, DAKIN'S FULL STRENGTH (0.5%) 473 ML TOPICAL SOLN TP SCH ×2 (02:30→13:06)
[2020-10-21 05:28] LABS: Basophils % (Auto) 0.2 % (0.0-1.8); Eosinophils # (Auto) 0.1 K/mm3 (0.0-0.4); Eosinophils % (Auto) 0.8 % (0.0-4.3); Hematocrit 39.8 % (35.5-45.6); Hemoglobin 13.6 gm/dl (11.8-15.2); Lymphocytes # (Auto) 0.9 K/mm3 (1.2-5.4); Lymphocytes % (Auto) 12.9 % (13.4-35.0); Mean Corpuscular HGB Conc 34 % (32-34); Mean Corpuscular Volume 92 fl (84-94); Monocytes # (Auto) 1.1 K/mm3 (0.0-0.8); Monocytes % (Auto) 15.3 % (0.0-7.3); Platelet Count 276 K/mm3 (140-440); Red Blood Count 4.35 M/mm3 (3.65-5.03); Red Cell Distribution Width 16.4 % (13.2-15.2)
[2020-10-21] MEDS: PIPERACIL/TAZOBACTA 4.5/NS 100 4.5 GM/100 ML VIAL IV SCH ×3 (05:58→22:47)
[2020-10-21] MEDS: PANTOPRAZOLE 40 MG INJ IV SCH ×2 (10:18→22:47)
--- NOTE | 2020-10-21 13:30 | Progress Note ---
Assessment and Plan 40-year-old male postop day 5 status post ex lap with Kris patch repair of perforated gastric ulcer. Clinically with postop ileus that is showing signs of resolution. remains afebrile and stable. We will do clamping trial today of NG tube. Upper GI to be performed in a.m. to evaluate repair prior to removal of NG tube and starting of p.o. liquids. Subjective Date of service: 10/21/20 Narrative: No acute overnight. Patient is showering and ambulating without difficulty. Patient denies eating or drinking anything however nurse says that there was some sediment in the bottom of his NG tube canister consistent with food particulate. Patient's NG tube output has decreased last 24 hours. Patient is passing a lot of flatus and says that his pain is improved compared to previous. Objective Vital Signs - 12hr 10/21/20 10/21/20 10/21/20 05:44 07:41 11:47 Temperature 98.7 F 98.3 F Pulse Rate 72 74 Respiratory 18 18 Rate Blood Pressure 130/80 120/84 O2 Sat by Pulse 96 95 99 Oximetry 10/21/20 11:59 Temperature 98.0 F Pulse Rate 76 Respiratory 16 Rate Blood Pressure 117/80 O2 Sat by Pulse 96 Oximetry - General physical appearance well developed, well nourished, no distress, no pain - Respiratory normal expansion, normal respiratory effort - Abdomen soft, other (Midline incision packing removed mild serosanguineous drainage, appropriate tenderness to palpation, NG tube with gastric contents.) - Labs 10/21/20 04:30 10/19/20 08:30
--- NOTE | 2020-10-21 13:53 | Progress Note ---
Assessment and Plan - Patient Problems (1) Perforated abdominal viscus Current Visit: Yes Status: Acute Plan to address problem: Patient status post surgical intervention. Continue management as per surgical team recommendations. (2) Peritonitis Current Visit: Yes Status: Acute Plan to address problem: IV antibiotic therapy, supportive care, repeat CBC in a.m. (3) Dehydration Current Visit: Yes Status: Acute Plan to address problem: IV fluid resuscitation therapy, supportive care, monitor urine output every shift. (4) DVT prophylaxis Current Visit: Yes Status: Acute Plan to address problem: SCD to bilateral lower extremities while in bed History Interval history: 40 YO Male with perforated viscus complicated by peritonitis, volume depletion. No reported nursing events. No reports of pain. Patient resting comfortably in bed. Patient denies fever, chills, chest pain, nausea vomiting diarrhea. Hospitalist Physical - Constitutional Vitals: Temp Pulse Resp BP Pulse Ox 98.0 F 76 16 117/80 96 10/21/20 11:59 10/21/20 11:59 10/21/20 11:59 10/21/20 11:59 10/21/20 11:59 General appearance: Present: no acute distress, well-nourished - EENT Eyes: Present: PERRL, EOM intact ENT: hearing intact - Neck Neck: Present: supple - Respiratory Respiratory effort: normal Respiratory: bilateral: CTA - Cardiovascular Rhythm: regular Heart Sounds: Present: S1 & S2 - Extremities Extremities: no ischemia Peripheral Pulses: within normal limits - Abdominal General gastrointestinal: soft, non-distended, other (Appropriately tender), no hepatomegaly, no splenomegaly - Integumentary Integumentary: Present: clear, dry - Psychiatric Psychiatric: appropriate mood/affect, cooperative Results - Labs CBC & Chem 7: 10/21/20 04:30 10/19/20 08:30 Labs: Laboratory Last Values WBC 6.9 K/mm3 (4.5-11.0) 10/21/20 04:30 RBC 4.35 M/mm3 (3.65-5.03) 10/21/20 04:30 Hgb 13.6 gm/dl (11.8-15.2) 10/21/20 04:30 Hct 39.8 % (35.5-45.6) 10/21/20 04:30 MCV 92 fl (84-94) 10/21/20 04:30 MCH 31 pg (28-32) 10/21/20 04:30 MCHC 34 % (32-34) 10/21/20 04:30 RDW 16.4 % (13.2-15.2) H 10/21/20 04:30 Plt Count 276 K/mm3 (140-440) 10/21/20 04:30 Lymph % (Auto) 12.9 % (13.4-35.0) L 10/21/20 04:30 [place] % (Auto) 15.3 % (0.0-7.3) H 10/21/20 04:30 Eos % (Auto) 0.8 % (0.0-4.3) 10/21/20 04:30 Baso % (Auto) 0.2 % (0.0-1.8) 10/21/20 04:30 Lymph # (Auto) 0.9 K/mm3 (1.2-5.4) L 10/21/20 04:30 [place] # (Auto) 1.1 K/mm3 (0.0-0.8) H 10/21/20 04:30 Eos # (Auto) 0.1 K/mm3 (0.0-0.4) 10/21/20 04:30 Baso # (Auto) 0.0 K/mm3 (0.0-0.1) 10/21/20 04:30 Add Manual Diff Complete 10/16/20 09:44 Total Counted 100 10/16/20 09:44 Seg Neutrophils % 70.8 % (40.0-70.0) H 10/21/20 04:30 Seg Neuts % (Manual) 75.0 % (40.0-70.0) H 10/16/20 09:44 Band Neutrophils % 14.0 % 10/16/20 09:44 Lymphocytes % (Manual) 9.0 % (13.4-35.0) L 10/16/20 09:44 Monocytes % (Manual) 2.0 % (0.0-7.3) 10/16/20 09:44 Nucleated RBC % Not Reportable 10/16/20 09:44 Seg Neutrophils # 4.9 K/mm3 (1.8-7.7) 10/21/20 04:30 Seg Neutrophils # Man 5.3 K/mm3 (1.8-7.7) 10/16/20 09:44 Band Neutrophils # 1.0 K/mm3 10/16/20 09:44 Lymphocytes # (Manual) 0.6 K/mm3 (1.2-5.4) L 10/16/20 09:44 Abs React Lymphs (Man) 0.0 K/mm3 10/16/20 09:44 Monocytes # (Manual) 0.1 K/mm3 (0.0-0.8) 10/16/20 09:44 Eosinophils # (Manual) 0.0 K/mm3 (0.0-0.4) 10/16/20 09:44 Basophils # (Manual) 0.0 K/mm3 (0.0-0.1) 10/16/20 09:44 Metamyelocytes # 0.0 K/mm3 10/16/20 09:44 Myelocytes # 0.0 K/mm3 10/16/20 09:44 Promyelocytes # 0.0 K/mm3 10/16/20 09:44 Blast Cells # 0.0 K/mm3 10/16/20 09:44 WBC Morphology Not Reportable 10/16/20 09:44 Hypersegmented Neuts Not Reportable 10/16/20 09:44 Hyposegmented Neuts Not Reportable 10/16/20 09:44 Hypogranular Neuts Not Reportable 10/16/20 09:44 Smudge Cells Not Reportable 10/16/20 09:44 Toxic Granulation Not Reportable 10/16/20 09:44 Toxic Vacuolation Not Reportable 10/16/20 09:44 Dohle Bodies Not Reportable 10/16/20 09:44 Pelger-Huet Anomaly Not Reportable 10/16/20 09:44 Flori Rods Not Reportable 10/16/20 09:44 Platelet Estimate Consistent w auto 10/16/20 09:44 Clumped Platelets Not Reportable 10/16/20 09:44 Plt Clumps, EDTA Not Reportable 10/16/20 09:44 Large Platelets Not Reportable 10/16/20 09:44 Giant Platelets Not Reportable 10/16/20 09:44 Platelet Satelliting Not Reportable 10/16/20 09:44 Plt Morphology Comment Not Reportable 10/16/20 09:44 RBC Morphology Normal 10/16/20 09:44 Dimorphic RBCs Not Reportable 10/16/20 09:44 Polychromasia Not Reportable 10/16/20 09:44 Hypochromasia Not Reportable 10/16/20 09:44 Poikilocytosis Not Reportable 10/16/20 09:44 Anisocytosis Not Reportable 10/16/20 09:44 Microcytosis Not Reportable 10/16/20 09:44 Macrocytosis Not Reportable 10/16/20 09:44 Spherocytes Not Reportable 10/16/20 09:44 Pappenheimer Bodies Not Reportable 10/16/20 09:44 Sickle Cells Not Reportable 10/16/20 09:44 Target Cells Not Reportable 10/16/20 09:44 Tear Drop Cells Not Reportable 10/16/20 09:44 Ovalocytes Not Reportable 10/16/20 09:44 Helmet Cells Not Reportable 10/16/20 09:44 Martines-[place] Bodies Not Reportable 10/16/20 09:44 [place] Rings Not Reportable 10/16/20 09:44 [place] Cells Not Reportable 10/16/20 09:44 Bite Cells Not Reportable 10/16/20 09:44 Crenated Cell Not Reportable 10/16/20 09:44 Elliptocytes Not Reportable 10/16/20 09:44 Acanthocytes (Spur) Not Reportable 10/16/20 09:44 Rouleaux Not Reportable 10/16/20 09:44 Hemoglobin C Crystals Not Reportable 10/16/20 09:44 Schistocytes Not Reportable 10/16/20 09:44 Malaria parasites Not Reportable 10/16/20 09:44 Kalia Bodies Not Reportable 10/16/20 09:44 Hem Pathologist Commnt No 10/16/20 09:44 Sodium 141 mmol/L (137-145) 10/19/20 08:30 Potassium 3.6 mmol/L (3.6-5.0) 10/19/20 08:30 Chloride 106.4 mmol/L (98-107) 10/19/20 08:30 Carbon Dioxide 23 mmol/L (22-30) 10/19/20 08:30 Anion Gap 15 mmol/L 10/19/20 08:30 BUN 8 mg/dL (9-20) L 10/19/20 08:30 Creatinine 0.9 mg/dL (0.8-1.3) 10/19/20 08:30 Estimated GFR > 60 ml/min 10/19/20 08:30 BUN/Creatinine Ratio 9 % 10/19/20 08:30 Glucose 116 mg/dL (75-100) H 10/19/20 08:30 Hemoglobin A1c 5.8 % (4-6) 10/17/20 06:41 Calcium 8.4 mg/dL (8.4-10.2) 10/19/20 08:30 Total Bilirubin 0.60 mg/dL (0.1-1.2) 10/16/20 09:44 Direct Bilirubin < 0.2 mg/dL (0-0.2) 10/16/20 09:44 Indirect Bilirubin 0.4 mg/dL 10/16/20 09:44 AST 40 units/L (5-40) 10/16/20 09:44 ALT 21 units/L (7-56) 10/16/20 09:44 Alkaline Phosphatase 56 units/L (35-129) 10/16/20 09:44 Total Protein 6.8 g/dL (6.3-8.2) 10/16/20 09:44 Albumin 4.4 g/dL (3.9-5) 10/16/20 09:44 Albumin/Globulin Ratio 1.8 % 10/16/20 09:44 Lipase 99 units/L (13-60) H 10/16/20 09:44 Urine Color Yellow (Yellow) 10/16/20 Unknown Urine Turbidity Clear (Clear) 10/16/20 Unknown Urine pH 5.0 (5.0-7.0) 10/16/20 Unknown Ur Specific [place] 1.035 (1.003-1.030) H 10/16/20 Unknown Urine Protein <15 mg/dl mg/dL (Negative) 10/16/20 Unknown Urine Glucose (UA) Neg mg/dL (Negative) 10/16/20 Unknown Urine Ketones 80 mg/dL (Negative) 10/16/20 Unknown Urine Blood Neg (Negative) 10/16/20 Unknown Urine Nitrite Neg (Negative) 10/16/20 Unknown Urine Bilirubin Neg (Negative) 10/16/20 Unknown Urine Urobilinogen < 2.0 mg/dL (<2.0) 10/16/20 Unknown Ur Leukocyte Esterase Neg (Negative) 10/16/20 Unknown Urine WBC (Auto) < 1.0 /HPF (0.0-6.0) 10/16/20 Unknown Urine RBC (Auto) < 1.0 /HPF (0.0-6.0) 10/16/20 Unknown U Epithel Cells (Auto) < 1.0 /HPF (0-13.0) 10/16/20 Unknown Uric Acid Crystals Few 10/16/20 Unknown Urine Mucus Few /HPF 10/16/20 Unknown Urine Opiates Screen Negative 10/16/20 Unknown Urine Methadone Screen Negative 10/16/20 Unknown Ur Barbiturates Screen Negative 10/16/20 Unknown Ur Phencyclidine Scrn Negative 10/16/20 Unknown Ur Amphetamines Screen Negative 10/16/20 Unknown U Benzodiazepines Scrn Negative 10/16/20 Unknown Urine Cocaine Screen Positive 10/16/20 Unknown U Marijuana (THC) Screen Negative 10/16/20 Unknown Drugs of Abuse Note Disclamer 10/16/20 Unknown Microbiology: Microbiology 10/16/20 Unknown Abdomen Anaerobic Culture - Final 10/16/20 Unknown Abdomen Surgical Culture - Final Mary [place] Carrero/IV: Voiding Method Urinal Active Medications - Current Medications Current Medications: Generic Name Dose Route Start Last Admin Trade Name Freq PRN Reason Stop Dose Admin Acetaminophen 650 mg 10/16/20 21:17 Acetaminophen 325 Mg Tab PO Q4H PRN Pain MILD(1-3)/Fever >100.5/CASTELLANO Hydromorphone HCl 0.5 mg 10/16/20 21:17 10/20/20 13:19 Hydromorphone 1 Mg/1 Ml Inj IV 0.5 mg Q3H PRN Administration Pain , Severe (7-10) Dextrose/Sodium Chloride 1,000 mls @ 75 mls/hr 10/16/20 22:00 10/21/20 01:35 D5ns IV 75 mls/hr DIRECT MASSIEL Administration Piperacillin Sod/Tazobactam Sod 4.5 gm in 100 mls @ 200 mls/hr 10/17/20 14:00 10/21/20 13:05 Zosyn/Ns 4.5gm/100ml IV 200 mls/hr Q8HR MASSIEL Administration Metoclopramide HCl 10 mg 10/16/20 21:17 Metoclopramide 10 Mg/2 Ml Inj IV Q6H PRN Nausea And Vomiting Morphine Sulfate 2 mg 10/16/20 21:17 10/19/20 20:02 Morphine 2 Mg/1 Ml Inj IV 2 mg Q4H PRN Administration Pain, Moderate (4-6) Ondansetron HCl 4 mg 10/16/20 21:17 Ondansetron 4 Mg/2 Ml Inj IV Q3H PRN Nausea And Vomiting Pantoprazole Sodium 40 mg 10/16/20 22:00 10/21/20 10:18 Pantoprazole 40 Mg Inj IV 40 mg BID MASSIEL Administration Sodium Chloride 10 ml 10/16/20 22:00 10/21/20 10:19 Sodium Chloride 0.9% 10 Ml Flush Syringe IV 10 ml BID MASSIEL Administration Sodium Chloride 10 ml 10/16/20 21:17 Sodium Chloride 0.9% 10 Ml Flush Syringe IV PRN PRN LINE FLUSH Sodium Hypochlorite 1 applic 10/18/20 14:00 10/21/20 13:06 Sodium Hypochlorite, Dakin's Full Strength (0.5%) 473 Ml Topical Soln TP 11/01/20 13:59 1 applicatio Q12H MASSIEL Administration
[2020-10-22] MEDS: SODIUM HYPOCHLORITE, DAKIN'S FULL STRENGTH (0.5%) 473 ML TOPICAL SOLN TP SCH ×3 (02:52→14:42)
[2020-10-22 05:06] LABS: Basophils % (Auto) 0.4 % (0.0-1.8); Eosinophils # (Auto) 0.1 K/mm3 (0.0-0.4); Eosinophils % (Auto) 0.9 % (0.0-4.3); Hematocrit 40.1 % (35.5-45.6); Hemoglobin 13.6 gm/dl (11.8-15.2); Lymphocytes # (Auto) 1.2 K/mm3 (1.2-5.4); Lymphocytes % (Auto) 13.5 % (13.4-35.0); Mean Corpuscular HGB Conc 34 % (32-34); Mean Corpuscular Volume 91 fl (84-94); Monocytes # (Auto) 1.1 K/mm3 (0.0-0.8); Monocytes % (Auto) 12.9 % (0.0-7.3); Platelet Count 283 K/mm3 (140-440); Red Blood Count 4.39 M/mm3 (3.65-5.03); Red Cell Distribution Width 16.2 % (13.2-15.2)
[2020-10-22 05:16] LABS: Alanine Aminotransferase 42 units/L (7-56); Albumin 2.7 g/dL (3.9-5); BUN/Creatinine Ratio 10; Blood Urea Nitrogen 8 mg/dL (9-20); Calcium 8.1 mg/dL (8.4-10.2); Hemolysis Index 16
[2020-10-22] MEDS: PIPERACIL/TAZOBACTA 4.5/NS 100 4.5 GM/100 ML VIAL IV SCH ×3 (05:52→22:30)
--- NOTE | 2020-10-22 09:05 | Fluoroscopy Report ---
UPPER GI HISTORY: s/p repair of perforated gastric ulcer. TECHNIQUE: Single contrast Gastrografin technique. FINDINGS: Modified upper GI was performed to assess for integrity perforated gastric ulcer repair. Ap proximately 100 cc of Gastrografin agent was ingested. The distal esophagus is unremarkable. There is normal filling of the gastric cavity and duodenum. No evidence for obstruction or extravasation of c ontrast. IMPRESSION: No evidence for extravasation of contrast. Fluoroscopic time: 1.0 minutes Number of fluoroscopic images: 22 Signer Name: Williams Martinez Jr, MD Signed: 10/22/2020 9:01 AM Workstation Name: [id number]
[2020-10-22] MEDS: PANTOPRAZOLE 40 MG INJ IV SCH ×2 (09:21→22:30)
--- NOTE | 2020-10-22 10:43 | Progress Note ---
Assessment and Plan Assessment and plan: 40-year-old male postop day 5 status post ex lap with Kris patch repair of perforated gastric ulcer. Clinically with postop ileus that is showing signs of resolution. remains afebrile and stable. (1) Perforated abdominal viscus Patient status post surgical intervention. Continue management as per surgical team recommendations. Continue clamping trials of NG tube per surgery. Upper GI was performed this a.m. to evaluate repair prior to removal of NG tube and starting of p.o. liquids. (2) Peritonitis IV antibiotic therapy, supportive care, repeat CBC in a.m. (3) Dehydration IV fluid resuscitation therapy, supportive care, monitor urine output every shift. (4) DVT prophylaxis SCD to bilateral lower extremities while in bed History Interval history: No new issues. Hospitalist Physical - Constitutional Vitals: Temp Pulse Resp BP Pulse Ox 98.6 F 88 16 107/71 98 10/22/20 07:17 10/22/20 07:17 10/22/20 10:11 10/22/20 07:17 10/22/20 10:11 General appearance: Present: no acute distress, well-nourished - EENT Eyes: Present: PERRL, EOM intact ENT: hearing intact, clear oral mucosa, dentition normal - Neck Neck: Present: supple, normal ROM - Respiratory Respiratory effort: normal Respiratory: bilateral: CTA - Cardiovascular Rhythm: regular Heart Sounds: Present: S1 & S2. Absent: gallop, rub - Extremities Extremities: no ischemia, No edema, Full ROM - Abdominal General gastrointestinal: soft, non-tender, non-distended, normal bowel sounds - Integumentary Integumentary: Present: clear, warm, dry - Neurologic Neurologic: CNII-XII intact, moves all extremities Results - Labs CBC & Chem 7: 10/22/20 04:28 10/22/20 04:28 Labs: Laboratory Last Values WBC 8.8 K/mm3 (4.5-11.0) 10/22/20 04:28 RBC 4.39 M/mm3 (3.65-5.03) 10/22/20 04:28 Hgb 13.6 gm/dl (11.8-15.2) 10/22/20 04:28 Hct 40.1 % (35.5-45.6) 10/22/20 04:28 MCV 91 fl (84-94) 10/22/20 04:28 MCH 31 pg (28-32) 10/22/20 04:28 MCHC 34 % (32-34) 10/22/20 04:28 RDW 16.2 % (13.2-15.2) H 10/22/20 04:28 Plt Count 283 K/mm3 (140-440) 10/22/20 04:28 Lymph % (Auto) 13.5 % (13.4-35.0) 10/22/20 04:28 [place] % (Auto) 12.9 % (0.0-7.3) H 10/22/20 04:28 Eos % (Auto) 0.9 % (0.0-4.3) 10/22/20 04:28 Baso % (Auto) 0.4 % (0.0-1.8) 10/22/20 04:28 Lymph # (Auto) 1.2 K/mm3 (1.2-5.4) 10/22/20 04:28 [place] # (Auto) 1.1 K/mm3 (0.0-0.8) H 10/22/20 04:28 Eos # (Auto) 0.1 K/mm3 (0.0-0.4) 10/22/20 04:28 Baso # (Auto) 0.0 K/mm3 (0.0-0.1) 10/22/20 04:28 Add Manual Diff Complete 10/16/20 09:44 Total Counted 100 10/16/20 09:44 Seg Neutrophils % 72.3 % (40.0-70.0) H 10/22/20 04:28 Seg Neuts % (Manual) 75.0 % (40.0-70.0) H 10/16/20 09:44 Band Neutrophils % 14.0 % 10/16/20 09:44 Lymphocytes % (Manual) 9.0 % (13.4-35.0) L 10/16/20 09:44 Monocytes % (Manual) 2.0 % (0.0-7.3) 10/16/20 09:44 Nucleated RBC % Not Reportable 10/16/20 09:44 Seg Neutrophils # 6.3 K/mm3 (1.8-7.7) 10/22/20 04:28 Seg Neutrophils # Man 5.3 K/mm3 (1.8-7.7) 10/16/20 09:44 Band Neutrophils # 1.0 K/mm3 10/16/20 09:44 Lymphocytes # (Manual) 0.6 K/mm3 (1.2-5.4) L 10/16/20 09:44 Abs React Lymphs (Man) 0.0 K/mm3 10/16/20 09:44 Monocytes # (Manual) 0.1 K/mm3 (0.0-0.8) 10/16/20 09:44 Eosinophils # (Manual) 0.0 K/mm3 (0.0-0.4) 10/16/20 09:44 Basophils # (Manual) 0.0 K/mm3 (0.0-0.1) 10/16/20 09:44 Metamyelocytes # 0.0 K/mm3 10/16/20 09:44 Myelocytes # 0.0 K/mm3 10/16/20 09:44 Promyelocytes # 0.0 K/mm3 10/16/20 09:44 Blast Cells # 0.0 K/mm3 10/16/20 09:44 WBC Morphology Not Reportable 10/16/20 09:44 Hypersegmented Neuts Not Reportable 10/16/20 09:44 Hyposegmented Neuts Not Reportable 10/16/20 09:44 Hypogranular Neuts Not Reportable 10/16/20 09:44 Smudge Cells Not Reportable 10/16/20 09:44 Toxic Granulation Not Reportable 10/16/20 09:44 Toxic Vacuolation Not Reportable 10/16/20 09:44 Dohle Bodies Not Reportable 10/16/20 09:44 Pelger-Huet Anomaly Not Reportable 10/16/20 09:44 Flori Rods Not Reportable 10/16/20 09:44 Platelet Estimate Consistent w auto 10/16/20 09:44 Clumped Platelets Not Reportable 10/16/20 09:44 Plt Clumps, EDTA Not Reportable 10/16/20 09:44 Large Platelets Not Reportable 10/16/20 09:44 Giant Platelets Not Reportable 10/16/20 09:44 Platelet Satelliting Not Reportable 10/16/20 09:44 Plt Morphology Comment Not Reportable 10/16/20 09:44 RBC Morphology Normal 10/16/20 09:44 Dimorphic RBCs Not Reportable 10/16/20 09:44 Polychromasia Not Reportable 10/16/20 09:44 Hypochromasia Not Reportable 10/16/20 09:44 Poikilocytosis Not Reportable 10/16/20 09:44 Anisocytosis Not Reportable 10/16/20 09:44 Microcytosis Not Reportable 10/16/20 09:44 Macrocytosis Not Reportable 10/16/20 09:44 Spherocytes Not Reportable 10/16/20 09:44 Pappenheimer Bodies Not Reportable 10/16/20 09:44 Sickle Cells Not Reportable 10/16/20 09:44 Target Cells Not Reportable 10/16/20 09:44 Tear Drop Cells Not Reportable 10/16/20 09:44 Ovalocytes Not Reportable 10/16/20 09:44 Helmet Cells Not Reportable 10/16/20 09:44 [place] Bodies Not Reportable 10/16/20 09:44 [place] Rings Not Reportable 10/16/20 09:44 [place] Cells Not Reportable 10/16/20 09:44 Bite Cells Not Reportable 10/16/20 09:44 Crenated Cell Not Reportable 10/16/20 09:44 Elliptocytes Not Reportable 10/16/20 09:44 Acanthocytes (Spur) Not Reportable 10/16/20 09:44 Rouleaux Not Reportable 10/16/20 09:44 Hemoglobin C Crystals Not Reportable 10/16/20 09:44 Schistocytes Not Reportable 10/16/20 09:44 Malaria parasites Not Reportable 10/16/20 09:44 Kalia Bodies Not Reportable 10/16/20 09:44 Hem Pathologist Commnt No 10/16/20 09:44 Sodium 139 mmol/L (137-145) 10/22/20 04:28 Potassium 3.2 mmol/L (3.6-5.0) L 10/22/20 04:28 Chloride 105.2 mmol/L (98-107) 10/22/20 04:28 Carbon Dioxide 25 mmol/L (22-30) 10/22/20 04:28 Anion Gap 12 mmol/L 10/22/20 04:28 BUN 8 mg/dL (9-20) L 10/22/20 04:28 Creatinine 0.8 mg/dL (0.8-1.3) 10/22/20 04:28 Estimated GFR > 60 ml/min 10/22/20 04:28 BUN/Creatinine Ratio 10 % 10/22/20 04:28 Glucose 112 mg/dL (75-100) H 10/22/20 04:28 Hemoglobin A1c 5.8 % (4-6) 10/17/20 06:41 Calcium 8.1 mg/dL (8.4-10.2) L 10/22/20 04:28 Total Bilirubin 0.20 mg/dL (0.1-1.2) 10/22/20 04:28 Direct Bilirubin < 0.2 mg/dL (0-0.2) 10/16/20 09:44 Indirect Bilirubin 0.4 mg/dL 10/16/20 09:44 AST 38 units/L (5-40) 10/22/20 04:28 ALT 42 units/L (7-56) 10/22/20 04:28 Alkaline Phosphatase 50 units/L (35-129) 10/22/20 04:28 Total Protein 5.8 g/dL (6.3-8.2) L 10/22/20 04:28 Albumin 2.7 g/dL (3.9-5) L 10/22/20 04:28 Albumin/Globulin Ratio 0.9 % 10/22/20 04:28 Lipase 99 units/L (13-60) H 10/16/20 09:44 Urine Color Yellow (Yellow) 10/16/20 Unknown Urine Turbidity Clear (Clear) 10/16/20 Unknown Urine pH 5.0 (5.0-7.0) 10/16/20 Unknown Ur Specific [place] 1.035 (1.003-1.030) H 10/16/20 Unknown Urine Protein <15 mg/dl mg/dL (Negative) 10/16/20 Unknown Urine Glucose (UA) Neg mg/dL (Negative) 10/16/20 Unknown Urine Ketones 80 mg/dL (Negative) 10/16/20 Unknown Urine Blood Neg (Negative) 10/16/20 Unknown Urine Nitrite Neg (Negative) 10/16/20 Unknown Urine Bilirubin Neg (Negative) 10/16/20 Unknown Urine Urobilinogen < 2.0 mg/dL (<2.0) 10/16/20 Unknown Ur Leukocyte Esterase Neg (Negative) 10/16/20 Unknown Urine WBC (Auto) < 1.0 /HPF (0.0-6.0) 10/16/20 Unknown Urine RBC (Auto) < 1.0 /HPF (0.0-6.0) 10/16/20 Unknown U Epithel Cells (Auto) < 1.0 /HPF (0-13.0) 10/16/20 Unknown Uric Acid Crystals Few 10/16/20 Unknown Urine Mucus Few /HPF 10/16/20 Unknown Urine Opiates Screen Negative 10/16/20 Unknown Urine Methadone Screen Negative 10/16/20 Unknown Ur Barbiturates Screen Negative 10/16/20 Unknown Ur Phencyclidine Scrn Negative 10/16/20 Unknown Ur Amphetamines Screen Negative 10/16/20 Unknown U Benzodiazepines Scrn Negative 10/16/20 Unknown Urine Cocaine Screen Positive 10/16/20 Unknown U Marijuana (THC) Screen Negative 10/16/20 Unknown Drugs of Abuse Note Disclamer 10/16/20 Unknown Carrero/IV: Voiding Method Toilet Active Medications - Current Medications Current Medications: Generic Name Dose Route Start Last Admin Trade Name Freq PRN Reason Stop Dose Admin Acetaminophen 650 mg 10/16/20 21:17 Acetaminophen 325 Mg Tab PO Q4H PRN Pain MILD(1-3)/Fever >100.5/CASTELLANO Hydromorphone HCl 0.5 mg 10/16/20 21:17 10/20/20 13:19 Hydromorphone 1 Mg/1 Ml Inj IV 0.5 mg Q3H PRN Administration Pain , Severe (7-10) Dextrose/Sodium Chloride 1,000 mls @ 75 mls/hr 10/16/20 22:00 10/21/20 19:01 D5ns IV 75 mls/hr DIRECT MASSIEL Administration Piperacillin Sod/Tazobactam Sod 4.5 gm in 100 mls @ 200 mls/hr 10/17/20 14:00 10/22/20 05:52 Zosyn/Ns 4.5gm/100ml IV 100 mls/hr Q8HR MASSIEL Administration Metoclopramide HCl 10 mg 10/16/20 21:17 Metoclopramide 10 Mg/2 Ml Inj IV Q6H PRN Nausea And Vomiting Morphine Sulfate 2 mg 10/16/20 21:17 10/19/20 20:02 Morphine 2 Mg/1 Ml Inj IV 2 mg Q4H PRN Administration Pain, Moderate (4-6) Ondansetron HCl 4 mg 10/16/20 21:17 Ondansetron 4 Mg/2 Ml Inj IV Q3H PRN Nausea And Vomiting Pantoprazole Sodium 40 mg 10/16/20 22:00 10/22/20 09:21 Pantoprazole 40 Mg Inj IV 40 mg BID MASSIEL Administration Sodium Chloride 10 ml 10/16/20 22:00 10/22/20 09:22 Sodium Chloride 0.9% 10 Ml Flush Syringe IV 10 ml BID MASSIEL Administration Sodium Chloride 10 ml 10/16/20 21:17 Sodium Chloride 0.9% 10 Ml Flush Syringe IV PRN PRN LINE FLUSH Sodium Hypochlorite 1 applic 10/18/20 14:00 10/22/20 02:52 Sodium Hypochlorite, Dakin's Full Strength (0.5%) 473 Ml Topical Soln TP 11/01/20 13:59 1 applicatio Q12H MASSIEL Administration
--- NOTE | 2020-10-22 16:50 | Progress Note ---
Assessment and Plan - Patient Problems (1) Perforated abdominal viscus Current Visit: Yes Status: Acute Plan to address problem: 1) CLD 2) Nurses to instruct pt in how to do his wound care. 3) Anticipate discharge in 24-48 hours. Subjective Date of service: 10/22/20 Patient Reports: Positive: no new complaints, feels better, pain is less, tolerating liquids well, bowel movement (Pt says he will do his own wound care.) Objective Vital Signs - 12hr 10/22/20 10/22/20 10/22/20 05:56 07:17 10:11 Temperature 99.4 F 98.6 F Pulse Rate 84 88 Respiratory 18 16 16 Rate Blood Pressure 116/76 107/71 O2 Sat by Pulse 91 93 98 Oximetry - Abdomen soft, bowel sounds normal (NT; Wound is clean.) - Labs 10/22/20 04:28 10/22/20 04:28 Diabetes panel 10/22/20 Range/Units 04:28 Sodium 139 (137-145) mmol/L Potassium 3.2 L (3.6-5.0) mmol/L Chloride 105.2 (98-107) mmol/L Carbon Dioxide 25 (22-30) mmol/L BUN 8 L (9-20) mg/dL Creatinine 0.8 (0.8-1.3) mg/dL Glucose 112 H (75-100) mg/dL Calcium 8.1 L (8.4-10.2) mg/dL AST 38 (5-40) units/L ALT 42 (7-56) units/L Alkaline Phosphatase 50 (35-129) units/L Total Protein 5.8 L (6.3-8.2) g/dL Albumin 2.7 L (3.9-5) g/dL Calcium panel 10/22/20 Range/Units 04:28 Calcium 8.1 L (8.4-10.2) mg/dL Albumin 2.7 L (3.9-5) g/dL Pituitary panel 10/22/20 Range/Units 04:28 Sodium 139 (137-145) mmol/L Potassium 3.2 L (3.6-5.0) mmol/L Chloride 105.2 (98-107) mmol/L Carbon Dioxide 25 (22-30) mmol/L BUN 8 L (9-20) mg/dL Creatinine 0.8 (0.8-1.3) mg/dL Glucose 112 H (75-100) mg/dL Calcium 8.1 L (8.4-10.2) mg/dL Adrenal panel 10/22/20 Range/Units 04:28 Sodium 139 (137-145) mmol/L Potassium 3.2 L (3.6-5.0) mmol/L Chloride 105.2 (98-107) mmol/L Carbon Dioxide 25 (22-30) mmol/L BUN 8 L (9-20) mg/dL Creatinine 0.8 (0.8-1.3) mg/dL Glucose 112 H (75-100) mg/dL Calcium 8.1 L (8.4-10.2) mg/dL Total Bilirubin 0.20 (0.1-1.2) mg/dL AST 38 (5-40) units/L ALT 42 (7-56) units/L Alkaline Phosphatase 50 (35-129) units/L Total Protein 5.8 L (6.3-8.2) g/dL Albumin 2.7 L (3.9-5) g/dL
[2020-10-23] MEDS: PIPERACIL/TAZOBACTA 4.5/NS 100 4.5 GM/100 ML VIAL IV SCH (05:22)
[2020-10-23] MEDS: SODIUM HYPOCHLORITE, DAKIN'S FULL STRENGTH (0.5%) 473 ML TOPICAL SOLN TP SCH ×2 (05:24→14:38)
[2020-10-23] MEDS: HYDROmorphone 1 MG/1 ML INJ IV PRN (05:35)
[2020-10-23 07:42] VITALS: BP 130/75
[2020-10-23 07:59] LABS: Basophils % (Auto) 0.4 % (0.0-1.8); Eosinophils # (Auto) 0.1 K/mm3 (0.0-0.4); Eosinophils % (Auto) 1.3 % (0.0-4.3); Hematocrit 38.2 % (35.5-45.6); Lymphocytes # (Auto) 1.2 K/mm3 (1.2-5.4); Lymphocytes % (Auto) 14.9 % (13.4-35.0); Mean Corpuscular HGB Conc 34 % (32-34); Mean Corpuscular Volume 92 fl (84-94); Monocytes % (Auto) 12.3 % (0.0-7.3); Platelet Count 295 K/mm3 (140-440); Red Blood Count 4.18 M/mm3 (3.65-5.03); Red Cell Distribution Width 16.3 % (13.2-15.2)
[2020-10-23 08:24] LABS: Blood Urea Nitrogen 6 mg/dL (9-20); Calcium 8.6 mg/dL (8.4-10.2); Hemolysis Index 5
[2020-10-23 08:31] LABS: BUN/Creatinine Ratio 9
[2020-10-23] MEDS: PANTOPRAZOLE 40 MG INJ IV SCH (10:24)
--- NOTE | 2020-10-23 13:39 | Discharge Summary ---
Providers - Providers Date of Admission: 10/16/20 16:51 Date of discharge: 10/23/20 Attending physician: MIGUEL ANGEL LIPSCOMB 10/16/20 Consult to Case Management [CONS] Routine Services Needed at Discharge: Home Health Services Notified:: cm notified 10/16/20 16:44 Consult to Physician [CONS] Stat Comment: Consulting Provider: JUSTYNA YORK Physician Instructions: Reason For Exam: perforated viscus Primary care physician: COLOR STRIPPER Hospitalization Condition: Stable Pertinent studies: EGD which showed gastric ulcer. Hospital course: 40-year-old male presents with acute abdominal pain found to be secondary to perforated abdominal viscus exacerbated by ileus. Patient underwent surgical intervention with exploratory lap and Kris patch repair. Patient did well tolerated repair of the ulcer. No further evidence of bleeding. No further abdominal pain. Patient able to tolerate p.o. and was stable for discharge. Patient be discharged with follow-up with surgery in 5 days and GI in 7 to 10 days. Disposition: DC- TO HOME OR SELFCARE Final Discharge Diagnosis (Prints w/discharge instructions): Perforated abdominal viscus 2. peptic ulcer disease - Discharge Diagnoses (1) Dehydration Status: Acute (2) Perforated abdominal viscus Status: Acute (3) Peritonitis Status: Acute Core Measure Documentation - Palliative Care Palliative Care/ Comfort Measures: Not Applicable - Core Measures Any of the following diagnoses?: none Exam - Constitutional Vitals: Temp Pulse Resp BP Pulse Ox 98.7 F 79 16 130/75 98 10/23/20 07:25 10/23/20 07:25 10/23/20 07:25 10/23/20 07:25 10/23/20 08:44 General appearance: Present: no acute distress, well-nourished - EENT Eyes: Present: PERRL ENT: hearing intact, clear oral mucosa - Neck Neck: Present: supple, normal ROM - Respiratory Respiratory effort: normal Respiratory: bilateral: CTA - Cardiovascular Heart Sounds: Present: S1 & S2. Absent: rub, click - Extremities Extremities: pulses symmetrical, No edema Peripheral Pulses: within normal limits - Abdominal General gastrointestinal: Present: soft, non-tender, non-distended, normal bowel sounds Male genitourinary: Present: normal - Integumentary Integumentary: Present: clear, warm, dry - Musculoskeletal Musculoskeletal: gait normal, strength equal bilaterally - Psychiatric Psychiatric: appropriate mood/affect, intact judgment & insight - Neurologic Neurologic: CNII-XII intact, moves all extremities Plan Activity: fall precautions Weight Bearing Status: Full Weight Bearing Wound: per wound nurse instructions, other (As per wound treatment nurse) Special Instructions: home health RN Follow up with: PRIMARY CARE,MD [Primary Care Provider] - 3-5 Days LISE YORK NP [Referring] - 7 Days JUSTYNA YORK MD [Staff Physician] - 7 Days
== END 2020-10-23 19:55 | disposition home or self-care (01) | DRG 326 ==
LOC: ED 08:49 → 3A 16:51 → 3B-SURG 20:10
PROVIDERS: ADMIT Internal Medicine; ATTEND Internal Medicine
PROC: 0DU607Z Supplement Stomach with Autologous Tissue Substitute, Open Approach (ICD-10-PCS; principal; 2020-10-16)
PROC: 0D9670Z Drainage of Stomach with Drainage Device, Via Natural or Artificial Opening (ICD-10-PCS; 2020-10-18)
DX: K25.5 Chronic or unspecified gastric ulcer with perforation (principal); K65.9 Peritonitis, unspecified; E86.0 Dehydration; K56.7 Ileus, unspecified; Z79.899 Other long term (current) drug therapy; Z82.49 Family history of ischemic heart disease and other diseases of the circulatory system
CPT/HCPCS: 36415; 71045; 74019; 74022; 74177; 74220; 74246; 80048; 80053; 80076; 80307; 81001; 83036; 83690; 85007; 85025; 87075; 87116; 96365; 96372; 96375; 99292; G0378; C9113; J0171; J0330; J1100; J1170; J1200; J1630; J1885; J2270; J2405; J2543; J2704; J2710; J2930; J7030; J7042; J7120; Q9963; Q9967